=== PATIENT | female | born 1995 | race Asian ===

== ENCOUNTER 2020-01-20 08:00 | Outpatient (CLI) | payer OTHER | END 2020-01-20 23:59 | disposition home or self-care (01) | LOC: LAB.R 08:00 | PROVIDERS: ATTEND Obstetrics & Gynecology | DX: O34.80 Maternal care for other abnormalities of pelvic organs, unspecified trimester (principal); Z3A.00 Weeks of gestation of pregnancy not specified | CPT/HCPCS: 82731 ==

== ENCOUNTER 2020-01-27 08:00 | Outpatient (CLI) | payer OTHER | END 2020-01-27 08:01 | disposition home or self-care (01) | LOC: LAB.R 08:00 | PROVIDERS: ATTEND Obstetrics & Gynecology | DX: Z36.85 Encounter for antenatal screening for Streptococcus B (principal) | CPT/HCPCS: 81599; 87491; 87591; 87797 ==

== ENCOUNTER 2020-02-04 15:55 | Outpatient (CLI) | payer OTHER ==
[2020-02-04 21:39] LABS: CANDIDA GROUP DNA NEGATIVE (NEGATIVE); CANDIDA KRUSEI DNA NEGATIVE (NEGATIVE); TRICHOMONAS VAGINALIS DNA NEGATIVE (NEGATIVE)
== END 2020-02-04 23:59 | disposition home or self-care (01) ==
LOC: LAB.R 15:55
PROVIDERS: ATTEND Obstetrics & Gynecology
DX: N89.8 Other specified noninflammatory disorders of vagina (principal)
CPT/HCPCS: 87661; 87801

== ENCOUNTER 2020-02-23 07:27 | Inpatient (IN) | payer OTHER ==
--- NOTE | 2020-02-23 08:40 | HISTORY & PHYSICAL EXAMINATION ---
Admit History - Visit Reason Visit Reason: Other (IOL) - : 2 Parity: 1 Care: positive: Sebas Risk/History: positive: Other Complications This : positive: Other (Positive for Anti-M antibodies. Titers too low to count. Followed by MFM. Titers too low to count.) - Mother's Labs Mother's Blood Type: positive: A Mother's RH: positive: Positive GBS: positive: Group B Step Negative Rubella Status: positive: Immune (Patient is a 2) - Other Maternal History Other Maternal History: Patient is a 24 yo at 39w2d here for IOL. has been complicated by positive anti-M antibody. She has been followed by [facility] until about 34 wga and then transferred to [facility]. Has been followed by [facility]. Recent anti-M titers were undetectable. Had complication with epidural 21 months ago when giving in [place]. Had a high spinal that interfered with breathing and left her face numb. Wants to avoid epidural if possible. LMP 05/24/2019 gives SHERINE 02/28/2020 US on 08/04/2019 at 10w3d gives SHERINE 02/27/2020, cwd A pos/Rub imm RPR NR/ hepBsAg neg/Hep C neg/pap NILM/HIV NR/ GCCT negx2 Glucola 166 3H: 73/184/124/91 GBS neg FAS with left EIF, posterior placenta, 3VC NIPT 46 XY with normal QUAD Meds/Allgy - Allergies Allergies/Adverse Reactions: Allergies Allergy/AdvReac Type Severity Reaction Status Date / Time No Known Drug Allergies Allergy Verified 02/23/20 09:39 Review of Systems - Other Findings Other Findings: As per HPI, otherwise remaining systems are negative. Physical - Abdominal Exam Vital Signs: 97.9 117 120/80 16 Contraction Frequency (min/apart): quiet Uterine Resting Tone: positive: Soft - Monitoring Heart Rate Baseline: 145 mod viky 15x15 accels no decels Strip Review: positive: Category I - Presentation Presentation: positive: Vertex - Vaginal Exam Dilation (in cm): FT Effacement (%): long Station: positive: -3 Cervical Position: positive: Posterior - Other Notes Labor Progress Note/Additional Text: Bedside us conirmed vertex. Plan for Labor - Plan For Labor Plan for Labor: 24 yo at 39+2 here for IOL IOL: Unfavorable cervix -Misoprostol 50 mcg BC Q4H for up to six doses -Mota balloon as indicated -Pitocin kristopher favorable -Consider AROM as indicated FWB: Followed by MFM for Anti-m ab and persistent EIF. -Undetectable titers -NIPT 46 XY Cat I tracing, GBS neg, vertex, well grown -CEFM PAIN: Has PTSD from high spinal at last delivery. -Want to avoid epidural -Anesthesia to high school guidance counselor patient on options given poor prior experience -Fentanyl 50 mcg to max of 200 mcg cumulative dosing and not after 7 cm In-patient care
[2020-02-23] MEDS ORDERED: LABETALOL 20 MG/4 ML SYRINGE IVP PRN (08:41)
[2020-02-23] MEDS ORDERED: TRANEXAMIC ACID 1,000 MG in SODIUM CHLORIDE 0.9% 100ML 100 ML IV PRN (08:41)
[2020-02-23] MEDS ORDERED: LIDOCAINE-MPF 1% 30 ML VIAL ID PRN (08:41)
[2020-02-23] MEDS ORDERED: METHYLERGONOVINE 0.2 MG/ML VIAL IM PRN (08:41)
[2020-02-23] MEDS ORDERED: fentaNYL 100 MCG/2 ML VIAL IVP PRN (08:41)
[2020-02-23] MEDS ORDERED: miSOPROStoL 200 MCG TABLET BC PRN (08:41)
[2020-02-23] MEDS ORDERED: OXYTOCIN/SODIUM CHLORIDE 500 ML IV PRN ×2 (08:41)
[2020-02-23] MEDS ORDERED: OXYTOCIN 10 UNIT/ML VIAL IM PRN (08:41)
[2020-02-23] MEDS ORDERED: TERBUTALINE 1 MG/ML VIAL SUBQ PRN (08:41)
[2020-02-23] MEDS ORDERED: SODIUM CHLORIDE FLUSH 0.9% 10 ML SYRINGE IVP PRN (08:41)
[2020-02-23] MEDS ORDERED: CARBOPROST TROMETHAMINE 250 MCG/ML AMP IM PRN (08:41)
[2020-02-23] MEDS ORDERED: ONDANSETRON 4 MG/2 ML VIAL IVP PRN ×2 (08:41→21:00)
[2020-02-23 08:56] LABS: BASOPHILS % (AUTO) 0.4 %; EOSINOPHILS # (AUTO) 0.1 10^3/uL (0.0-0.7); EOSINOPHILS % (AUTO) 0.8 %; HGB - HEMOGLOBIN 10.8 g/dL (12.0-16.0); LYMPHOCYTES # (AUTO) 1.5 10^3/uL (1.5-3.5); LYMPHOCYTES % (AUTO) 19.3 %; MEAN CORPUSCULAR HEMOGLOBIN 29.8 pg (27.0-31.0); MEAN CORPUSCULAR VOLUME 90.1 fL (81.0-99.0); MEAN PLATELET VOLUME 10.6 fL (7.9-10.8); MONOCYTES # (AUTO) 0.6 10^3/uL (0.0-1.0); MONOCYTES % (AUTO) 7.1 %; NEUTROPHILS # (AUTO) 5.5 10^3/uL (1.5-6.6); NEUTROPHILS % (AUTO) 71.9 %; PLT - PLATELET COUNT 223 10^3/uL (130-450); RED BLOOD COUNT 3.63 10^6/uL (4.20-5.40); RED CELL DISTRIBUTION WIDTH 13.3 % (12.0-15.0); WHITE BLOOD COUNT 7.7 x10^3/uL (4.8-10.8)
[2020-02-23] MEDS ORDERED: OXYTOCIN/SODIUM CHLORIDE 500 ML IV SCH (09:00)
[2020-02-23] MEDS ORDERED: SODIUM CHLORIDE FLUSH 0.9% 10 ML SYRINGE IVP SCH (09:00)
[2020-02-23] MEDS: miSOPROStoL 100 MCG TABLET BC SCH ×2 (09:05→14:34)
[2020-02-23] MEDS ORDERED: miSOPROStoL 200 MCG TABLET PR ONE (09:30)
--- NOTE | 2020-02-23 18:34 | CONSULTATION NOTE ---
Consultation Report: Consultation to discuss previous negative experience with epidural. Pt described what sounds like a high epidural dose resulting in difficulty breathing, chest pain, and numbness at neck at L UE. Further complicating the situation was a communication barrier at the [facility]. Pt states that she felt all of her childbirth and it was described as tolerable but continues to have bad dreams and anxiety about the event. Complaints of residual back pain as well. Pt wishes to avoid epidural placement during this childbirth. I exp lained alternative options such as IV fentanyl and N2O. Discussed the possibility of her requesting an epidural during labor and the unlikelihood, though still possible, of those events repeating themselves with an epidural placement. Pt appeared comfortable at this time. Pt had no further questions at this point.
[2020-02-23] MEDS: LACTATED RINGERS 1,000 ML IV SCH ×2 (18:52→21:25)
--- NOTE | 2020-02-23 19:40 | PROVIDER PROGRESS NOTE ---
Subjective - Prog Note Date Prog Note Date: 02/23/20 Prog Note Time: 18:45 - Subjective Subjective: Feel uncomfortable and having pressure with ctx. Has had miso x2 Prune juice resulted in BM but additional stooling uncomfortable has been Cat I tracing but baseline now 160-170s. moderate with accels and no decels TOCO: Q1-2 min SVE 3/80/-2/posterior Giving 500 cc fluid bolus Holding additional cervical ripening augmentation Anesthesia s/p consult Anticipate Objective - Vital Signs/Intake & Output Intake & Output: Intake & Output 02/20/20 02/21/20 02/22/20 02/23/20 23:59 23:59 23:59 23:59 Intake Total 1800 Output Total 150 Balance 1650 - Lab Results Fish Bones: 02/23/20 08:45 Other Labs: Lab Results x24hrs 02/23/20 02/23/20 Range/Units 08:45 08:41 WBC 7.7 (4.8-10.8) x10^3/uL RBC 3.63 L (4.20-5.40) 10^6/uL Hgb 10.8 L (12.0-16.0) g/dL Hct 32.7 L (37.0-47.0) % MCV 90.1 (81.0-99.0) fL MCH 29.8 (27.0-31.0) pg MCHC 33.0 (32.0-36.0) g/dL RDW 13.3 (12.0-15.0) % Plt Count 223 (130-450) 10^3/uL MPV 10.6 (7.9-10.8) fL Neut # (Auto) 5.5 (1.5-6.6) 10^3/uL Lymph # (Auto) 1.5 (1.5-3.5) 10^3/uL [place] # (Auto) 0.6 (0.0-1.0) 10^3/uL Eos # (Auto) 0.1 (0.0-0.7) 10^3/uL Baso # (Auto) 0.0 (0.0-0.1) 10^3/uL Absolute Nucleated RBC 0.00 x10^3/uL Nucleated RBC % 0.0 /100WBC Blood Type A POSITIVE Antibody Screen NEGATIVE
--- NOTE | 2020-02-23 19:41 | PROVIDER PROGRESS NOTE ---
Subjective - Prog Note Date Prog Note Date: 02/23/20 Prog Note Time: 19:40 - Subjective Subjective: baseline back to 150s, mod viky, + accels no decels TOCO: Q1-2 Holding augmentation Expt management Epidural as desired Anticipate Objective - Vital Signs/Intake & Output Intake & Output: Intake & Output 02/20/20 02/21/20 02/22/20 02/23/20 23:59 23:59 23:59 23:59 Intake Total 1800 Output Total 150 Balance 1650 - Lab Results Fish Bones: 02/23/20 08:45 Other Labs: Lab Results x24hrs 02/23/20 02/23/20 Range/Units 08:45 08:41 WBC 7.7 (4.8-10.8) x10^3/uL RBC 3.63 L (4.20-5.40) 10^6/uL Hgb 10.8 L (12.0-16.0) g/dL Hct 32.7 L (37.0-47.0) % MCV 90.1 (81.0-99.0) fL MCH 29.8 (27.0-31.0) pg MCHC 33.0 (32.0-36.0) g/dL RDW 13.3 (12.0-15.0) % Plt Count 223 (130-450) 10^3/uL MPV 10.6 (7.9-10.8) fL Neut # (Auto) 5.5 (1.5-6.6) 10^3/uL Lymph # (Auto) 1.5 (1.5-3.5) 10^3/uL [place] # (Auto) 0.6 (0.0-1.0) 10^3/uL Eos # (Auto) 0.1 (0.0-0.7) 10^3/uL Baso # (Auto) 0.0 (0.0-0.1) 10^3/uL Absolute Nucleated RBC 0.00 x10^3/uL Nucleated RBC % 0.0 /100WBC Blood Type A POSITIVE Antibody Screen NEGATIVE
[2020-02-23] MEDS ORDERED: ROPIVACAINE 0.2% 200 MG/100 ML BAG EP ONE (20:25)
[2020-02-23] MEDS ORDERED: ROPIVACAINE 0.2% PF 20ML VIAL ONE (20:25)
[2020-02-23] MEDS ORDERED: ROPIVACAINE 0.2% 200 MG/100 ML BAG EP PRN (21:00)
[2020-02-23] MEDS ORDERED: METOCLOPRAMIDE 10 MG/2 ML VIAL IVP PRN (21:00)
[2020-02-23] MEDS ORDERED: NALBUPHINE 10 MG/ML AMP IVP PRN (21:00)
[2020-02-23] MEDS ORDERED: diphenhydrAMINE INJ 50 MG/ML VIAL IVP PRN (21:00)
[2020-02-23] MEDS ORDERED: NALOXONE 0.4 MG/ML VIAL IVP PRN (21:00)
--- NOTE | 2020-02-23 21:03 | ANESTHESIA ---
Pre-Anesthesia VS, & Labs - Diagnosis term labor, IUP - Procedure epidural Vital Signs: Temp Pulse Resp BP Pulse Ox 36.6 C 117 H 16 120/80 02/23/20 09:22 02/23/20 09:22 02/23/20 09:22 02/23/20 09:22 Height: 5 ft 4 in Weight (kg): 81.193 kg Body Mass Index: 30.7 BMI Classification: Obese - NPO Last Fluid Intake: t/o day Last Food Intake: full dinner - Is Patient ?: Yes - Lab Results Current Lab Results: Laboratory Tests 02/23/20 08:45: WBC 7.7, RBC 3.63 L, Hgb 10.8 L, Hct 32.7 L, MCV 90.1, MCH 29.8, MCHC 33.0, RDW 13.3, Plt Count 223, MPV 10.6, Neut # (Auto) 5.5, Lymph # (Auto) 1.5, [place] # (Auto) 0.6, Eos # (Auto) 0.1, Baso # (Auto) 0.0, Absolute Nucleated RBC 0.00, Nucleated RBC % 0.0 02/23/20 08:41: Blood Type A POSITIVE, Antibody Screen NEGATIVE Lab results reviewed: Yes Fish Bones: 02/23/20 08:45 Home Medications and Allergies Active Medications Carboprost Tromethamine (Hemabate) 250 mcg IM Q15M PRN PRN Reason: Step 4: Hemorrhage protocol Stop: 02/28/20 08:42 Fentanyl (Fentanyl) 50 mcg IVP Q1H PRN PRN Reason: PAIN Oxytocin/Sodium Chloride (Pitocin/Sodium Chloride) 500 mls @ 999 mls/hr IV PRN PRN; Protocol PRN Reason: POST- HEMORR PREVENTION Stop: 02/28/20 08:42 Tranexamic Acid 1,000 mg/ (Sodium Chloride) 110 mls @ 660 mls/hr IV .ONCE PRN PRN Reason: EBL >1200mL and within 3hr Stop: 02/28/20 08:42 Oxytocin/Sodium Chloride (Pitocin/Sodium Chloride) 500 mls @ 1 mls/hr IV TITR JOHN; Protocol Lactated Ringer's (Lr) 1,000 mls @ 100 mls/hr IV .Q10H JOHN Last Admin: 02/23/20 18:52 Dose: 500 mls/hr Documented by: Labetalol HCl (Trandate Syringe) 10 mg IVP Q20M PRN PRN Reason: SBP > 160 or DBP > 110 Lidocaine HCl (Xylocaine-Mpf 1% Vial) 30 ml ID .ONCE PRN PRN Reason: PERINEAL REPAIR Stop: 02/28/20 08:42 Methylergonovine Maleate (Methergine Inj) 0.2 mg IM .ONCE PRN PRN Reason: Step 2: Hemorrhage protocol Stop: 02/28/20 08:42 Misoprostol (Cytotec) 800 mcg BC .ONCE PRN PRN Reason: Step 3: Hemorrhage protocol Stop: 02/28/20 08:42 Misoprostol (Cytotec) 50 mcg BC Q4HR JOHN Last Admin: 02/23/20 14:34 Dose: 50 mcg Documented by: Ondansetron HCl (Zofran Inj) 4 mg IVP Q4HR PRN PRN Reason: Nausea / Vomiting Oxytocin (Pitocin) 10 unit IM .ONCE PRN PRN Reason: Step one: If no IV access Stop: 02/28/20 08:42 Sodium Chloride (Normal Saline Flush 0.9%) 10 ml IVP 0100,0900,1700 JOHN Sodium Chloride (Normal Saline Flush 0.9%) 10 ml IVP PRN PRN PRN Reason: NEEDED PER PROVIDER ORDERS Terbutaline Sulfate (Terbutaline) 0.25 mg SUBQ Q1H PRN PRN Reason: tachysystole Allergies/Adverse Reactions: Allergies Allergy/AdvReac Type Severity Reaction Status Date / Time No Known Drug Allergies Allergy Verified 02/23/20 09:39 Anes History & Medical History - Anesthetic History Anesthesia Complications: reports: No previous complications Family history of Anesthesia Complications: Denies Family history of Malignant Hyperthermia: Denies - Medical History Cardiovascular: reports: None Pulmonary: reports: None Smoking Status: Never smoker - Surgical History Other Past Surgical History: Hx of truamatic epidural placement/experience with first childbirth. Suspected high epidural. - Obstetrical History : 2 Parity: 1 Events: positive: Other Complications: positive: Other (Positive for Anti-M antibodies. Titers too low to count. Followed by MFM. Titers too low to count.) Exam General: Alert, Oriented x3, Cooperative Dental: WNL Mouth Openin Fingerbreadth Neck Mobility: Normal Mallampati classification: II Thyromental Distance: greater than 6 cm Respiratory: No respiratory distress Cardiovascular: Regular rate Mental/Cognitive Status: Alert/Oriented X3, Normal for patient Cognitive Status: Within normal limits Plan Anesthesia Type: Epidural Consent for Procedure(s) Verified and Reviewed: Yes Code Status: Attempt Resuscitation ASA classification: 2-Mild systemic disease Is this case an emergency?: No
--- NOTE | 2020-02-23 21:26 | PROVIDER PROGRESS NOTE ---
Subjective - Prog Note Date Prog Note Date: 02/23/20 Prog Note Time: 21:23 - Subjective Subjective: Called to patient bedside because she was 9 cm with BBOW. Patient is comfortable with epidural but reports pressures. Spontaneous labor after miso x2 EFM 145 mod viky 15x15 accels no decels TOCO: Q1-2 min AROM with clear fluid SVE 9/C/-1 Anticipate Objective - Vital Signs/Intake & Output Intake & Output: Intake & Output 02/20/20 02/21/20 02/22/20 02/23/20 23:59 23:59 23:59 23:59 Intake Total 1800 Output Total 150 Balance 1650 - Lab Results Fish Bones: 02/23/20 08:45 Other Labs: Lab Results x24hrs 02/23/20 02/23/20 Range/Units 08:45 08:41 WBC 7.7 (4.8-10.8) x10^3/uL RBC 3.63 L (4.20-5.40) 10^6/uL Hgb 10.8 L (12.0-16.0) g/dL Hct 32.7 L (37.0-47.0) % MCV 90.1 (81.0-99.0) fL MCH 29.8 (27.0-31.0) pg MCHC 33.0 (32.0-36.0) g/dL RDW 13.3 (12.0-15.0) % Plt Count 223 (130-450) 10^3/uL MPV 10.6 (7.9-10.8) fL Neut # (Auto) 5.5 (1.5-6.6) 10^3/uL Lymph # (Auto) 1.5 (1.5-3.5) 10^3/uL [place] # (Auto) 0.6 (0.0-1.0) 10^3/uL Eos # (Auto) 0.1 (0.0-0.7) 10^3/uL Baso # (Auto) 0.0 (0.0-0.1) 10^3/uL Absolute Nucleated RBC 0.00 x10^3/uL Nucleated RBC % 0.0 /100WBC Blood Type A POSITIVE Antibody Screen NEGATIVE
[2020-02-23] MEDS ORDERED: SIMETHICONE CHEW 80 MG TABLET PO PRN (23:09)
[2020-02-23] MEDS ORDERED: HYDROCORTISONE 1% CREAM 28 GM TUBE PR PRN (23:09)
[2020-02-23] MEDS ORDERED: ONDANSETRON ODT 4 MG TABLET TL PRN (23:09)
--- NOTE | 2020-02-23 23:20 | DELIVERY NOTE ---
Delivery Note - Infant Delivery Method Infant Delivery Method: positive: Spontaneous vaginal delivery - Cervical Ripening Method Cervical Ripening Method: positive: Misoprostil - Presentation Presentation: positive: Vertex, EVON - left occiput anterior - Nuchal Cord Nuchal Cord: positive: None - Anesthetic Anesthetic Type: - Amniotic Fluid Description Amniotic Fluid Description: positive: Clear - Episiotomy Type Episiotomy Type: positive: None - Laceration Laceration: positive: 1st degree - Delivery Outcome Delivery Outcome: positive: Livebirth - Buchanan Buchanan: positive: Placed in direct skin contact with mother, Stimulated, Warmed, Pharr used sex: positive: Male - Cord Cord: positive: 3 vessels - Placenta Placenta: positive: Intact, Expressed - Estimated Blood Loss Estimated Blood Loss (in cc): 200 - Post Delivery Events Post Delivery Events: positive: No post delivery events - Delivery Comments (Free Text/Narrative) Delivery Comments (Free Text/Narrative): STAGE I: Patient is a 24 yo at 39+6 wga with complicated by Anti- M ab and persistent EIF was admitted for induction of labor. Initial SVE was FT/long/high. She was given two doses of misoprostol 50 mcg BC which prompted commencement of spontaneous contractions. No further augmentation was indicated. She had an epidural for pain management. GBS negative, antibiotics were not indicated. Patient underwent artificial rupture of membranes at 21:19, notable for passage of clear fluid. Other than brief period of tachycardia relieved with a fluid bolus, EFM was category I throughout Stage I labor. At 21:30, a stretchy anterior lip was reduced and patient commenced with pushing. STAGE II: Patient pushed with coaching for 1 hour and 12 minutes, delivering a viable male from vertex presentation at 22:42. There was a 70 second shoulder dystocia relieved with Reema and rotational maneuvers. was delivered to maternal chest. Cord was clamped x2 and cut after pulsations had ceased. Apgars were 7/9. Weight is pending. STAGE III: Placenta delivered at 22:48 with manual expression. It was examined and found to be intact. The perineum was examined and was found to have a small midline first degree laceration that was hemostatic and repair was not indicated. Total EBL was 200 cc.
[2020-02-23] MEDS ORDERED: LACTATED RINGERS 1,000 ML IV SCH (23:45)
[2020-02-24] MEDS: IBUPROFEN 600 MG TABLET PO SCH ×4 (00:25→22:57)
[2020-02-24] MEDS: ACETAMINOPHEN 500 MG TABLET PO SCH ×3 (00:30→20:27)
--- NOTE | 2020-02-24 16:27 | PROVIDER PROGRESS NOTE ---
Subjective - Prog Note Date Prog Note Date: 02/24/20 Prog Note Time: 12:45 - Subjective Subjective: Patient is up and ambulating and tolerating po. She had johnny straight cath'd overnight fore more than 1100 cc of urine. She has been trying to void at [facility] and has only passed a small amount of urine. Reports that she had to be straight cath's three times after her prior delivery. Bf is going well and pain is well managed. Objective - Vital Signs/Intake & Output Reviewed Vital Signs: Yes Vital Signs: Vital Signs x48h Temp Pulse Resp BP Pulse Ox 02/24/20 10:56 97.9 F 68 16 109/59 L 99 Intake & Output: Intake & Output 02/21/20 02/22/20 02/23/20 02/24/20 23:59 23:59 23:59 23:59 Intake Total 2800 500 Output Total 550 4600 Balance 2250 -4100 - Objective General Appearance: positive: No acute distress Respiratory: positive: No respiratory distress, Breath sounds nml Cardiovascular: positive: Regular rate & rhythm Abdomen: positive: Non-tender, Other (FF below umbi. Discomfort with bladder palpation after void) Skin: positive: Color nml Extremities: positive: Non-tender, No pedal edema Neurologic/Psychiatric: positive: Oriented x3 - Lab Results Fish Bones: 02/23/20 08:45 Assessment/Plan - Problem List (1) Vaginal delivery Impression: Patient with on-going urinary retention. Will need in and out catheterization at present. Will remain in patient until bladder function returns Will in and out catheterize as needed Anticipate DC home in the am
[2020-02-24] MEDS: DOCUSATE SODIUM 100 MG CAPSULE PO PRN (16:54)
[2020-02-25] MEDS: ACETAMINOPHEN 500 MG TABLET PO SCH (04:20)
[2020-02-25] MEDS: IBUPROFEN 600 MG TABLET PO SCH (05:22)
[2020-02-25 08:02] VITALS: BP 113/70
--- NOTE | 2020-02-25 09:24 | Discharge Plan ---
Discharge Plan Problem Reviewed?: Yes Disposition: Home, Self Care Condition: Good Prescriptions: Docusate Sodium 100 - 200 mg PO BID PRN #60 capsule PRN Reason: Constipation Ibuprofen [Motrin] 600 mg PO Q6H PRN #90 tab PRN Reason: Pain Acetaminophen [Tylenol Extra Strength] 500 - 1,000 mg PO Q8H PRN #90 tablet PRN Reason: Pain Diet: Regular Activity Restrictions: Additional Comments (Nothing in the vagina for 6 weeks: No intercourse, tampons, douching Call for: -Fever greater than 100.5 - Pain that does not improve with pain medication -Heavy bleeding in which you are soaking a pad an hour for 2 hours in a row) Shower Restrictions: No (No tub baths or hot tubs for 4 weeks) Driving Restrictions: No No Smoking: If you smoke, Please STOP! Call for help. Follow-up with: Dayana Olvera MD [Provider Admit Priv/Credential] -
--- NOTE | 2020-02-25 09:28 | DISCHARGE SUMMARY ---
Discharge Summary Admit Date: 02/23/20 Discharge Date: 02/25/20 Discharging Provider: May Condition at Discharge: Good Discharge Disposition: 01 Home, Self Care - DIAGNOSES Admission Diagnoses: IUP at 39+6 wga Anti-M antibody Discharge Diagnoses with Status of Each Condition: Same and delivery of term - HPI History of Present Illness: Patient is a 24 yo admitted at 39w2d here for IOL. has been complicated by positive anti-M antibody. She has been followed by [facility] until about 34 wga and then transferred to [facility]. Has been followed by [facility]. Recent anti-M titers were undetectable. Had complication with epidural 21 months ago when giving in [place]. Had a high spinal that interfered with breathing and left her face numb. LMP 05/24/2019 gives SHERINE 02/28/2020 US on 08/04/2019 at 10w3d gives SHERINE 02/27/2020, cwd A pos/Rub imm RPR NR/ hepBsAg neg/Hep C neg/pap NILM/HIV NR/ GCCT negx2 Glucola 166 3H: 73/184/124/91 GBS neg FAS with left EIF, posterior placenta, 3VC NIPT 46 XY with normal QUAD - HOSPITAL COURSE Hospital Course: STAGE I: Patient is a 24 yo at 39+6 wga with complicated by Anti- M ab and persistent EIF was admitted for induction of labor. Initial SVE was FT/long/high. She was given two doses of misoprostol 50 mcg BC which prompted commencement of spontaneous contractions. No further augmentation was indicated. She had an epidural for pain management. GBS negative, antibiotics were not indicated. Patient underwent artificial rupture of membranes at 21:19, notable for passage of clear fluid. Other than brief period of tachycardia relieved with a fluid bolus, EFM was category I throughout Stage I labor. At 21:30, a stretchy anterior lip was reduced and patient commenced with pushing. STAGE II: Patient pushed with coaching for 1 hour and 12 minutes, delivering a viable male from vertex presentation at 22:42. There was a 70 second shoulder dystocia relieved with Reema and rotational maneuvers. was delivered to maternal chest. Cord was clamped x2 and cut after pulsations had ceased. Apgars were 7/9. Weight is pending. STAGE III: Placenta delivered at 22:48 with manual expression. It was examined and found to be intact. The perineum was examined and was found to have a small midline first degree laceration that was hemostatic and repair was not indicated. Total EBL was 200 cc. course was complicated by urinary retention requiring replacement of a urinary catheter. She notes that this occurred after her first as well and she needed to undergo in and out catheterization during the period. It was removed on PPD#2 and patient was able to void. She was discharged to home with routine discharge instructions. Rh positive and rubella immune. - ALLERGIES Allergies/Adverse Reactions: Allergies Allergy/AdvReac Type Severity Reaction Status Date / Time No Known Drug Allergies Allergy Verified 02/23/20 09:39 - MEDICATIONS Home Medications: Ambulatory Orders Medication Instructions Recorded Confirmed Acetaminophen [Tylenol Extra 500 - 1,000 mg PO Q8H PRN #90 02/25/20 Strength] tablet Docusate Sodium 100 - 200 mg PO BID PRN #60 capsule 02/25/20 Ibuprofen [Motrin] 600 mg PO Q6H PRN #90 tab 02/25/20 - LABS Result Diagrams: 02/23/20 08:45 - FOLLOW UP Follow Up: 1 week - TIME SPENT Time Spent in Discharge (Minutes): 30
--- NOTE | 2020-02-25 09:43 | PROVIDER PROGRESS NOTE ---
Subjective - Prog Note Date Prog Note Date: 02/25/20 Prog Note Time: 09:41 - Subjective Subjective: Patient is up and ambulating, tolerating po, and voiding. Pain is well managed with pain medications. Mota removed at 4 am and patient was able to void x2 since that time. BF going well. Wants DMPA for contraception at 6 weeks pp. Objective - Vital Signs/Intake & Output Reviewed Vital Signs: Yes Vital Signs: Vital Signs x48h Temp Pulse Resp BP Pulse Ox 02/25/20 08:02 98.2 F 62 18 113/70 100 02/25/20 04:00 98.2 F 63 18 112/66 100 Intake & Output: Intake & Output 02/22/20 02/23/20 02/24/20 02/25/20 23:59 23:59 23:59 23:59 Intake Total 2800 850 1000 Output Total 550 5250 2200 Balance 2250 -4400 -1200 - Objective General Appearance: positive: No acute distress Respiratory: positive: No respiratory distress Cardiovascular: positive: Regular rate & rhythm Abdomen: positive: Non-tender, Other (FF below umbi) Skin: positive: Color nml Extremities: positive: Non-tender Neurologic/Psychiatric: positive: Oriented x3 - Lab Results Fish Bones: 02/23/20 08:45 Assessment/Plan - Problem List (1) Vaginal delivery Impression: PPD#2: Meeting goals for discharge -Routine discharge instructions given -Desires DMPAt 6 weeks pp -Discharged to home
[2020-02-25] MEDS: DOCUSATE SODIUM 100 MG CAPSULE PO PRN (10:31)
--- NOTE | 2020-02-25 12:45 | Labor Flowsheet ---
Labor Flowsheet Datetime Report Generated by CPN: 02/25/2020 12:44 Datetime: 02/25/2020 07:44 VITAL SIGNS NBP Sys/Laney/Mean (mmHg): 113 : 70 : 81 Pulse: 61 Datetime: 02/25/2020 00:05 SpO2 (%): 100 Datetime: 02/24/2020 01:30 PAIN Pain Scale: 0 Datetime: 02/24/2020 00:00 Pain Presence: Intermittent Pain Type: Ache Pain Location: Perineum Pain Goal: 1 Datetime: 02/23/2020 23:35 Membranes Ruptured Date/Time: 02/23/2020 21:19 Datetime: 02/23/2020 22:58 Patient Care Comments: Strait cath by OB for 200ml Datetime: 02/23/2020 22:50 Stage of : Recovery Datetime: 02/23/2020 22:45 LaborFlag: Labor Datetime: 02/23/2020 22:44 Actions for Decelerations: Other Comments: nasal canula removed-02 off Datetime: 02/23/2020 22:42 UTERINE ACTIVITY Monitor Mode: External Monitor Interventions for UA: [place] Adjusted Quality: Strong Resting Tone (Palpate): Relaxed Contraction Comments: Pattern unchanged ASSESSMENT A Monitor Mode: External US Variability: Moderate 6-25 bpm Category: Category II Datetime: 02/23/2020 22:14 Pattern: Normal: <= 5 Contractions in 10 Minutes Decelerations: Variable Datetime: 02/23/2020 22:00 FHR Baseline Changes: No Baseline Change Datetime: 02/23/2020 21:30 Frequency (min): 1.5-3 Duration (sec): 50-100 Monitor Interventions for FHR: Ultrasound Adjusted Accelerations: 15X15 MATERNAL ASSESSMENT Level of Consciousness: Alert Nausea/Vomiting: Denies Comfort Measures: Breathing/Relaxation; Coaching STAGE 2 Pushing: Coached on Pushing; Urge to Push Pushing Position: Pushing with Contractions Pushing Progress: Descent with Pushing Datetime: 02/23/2020 21:29 Effacement (%): 100 Station: 0 Datetime: 02/23/2020 21:28 Provider Reviewed Strip: Yes COMMUNICATION Communication: Provider at Bedside Communication Comments: May in room for pushing Datetime: 02/23/2020 21:19 VAGINAL EXAM Dilatation (cm): 9.5 Exam by: McSorley Membrane Status: Ruptured Membranes Rupture Method: Artificial Amniotic Fluid Color: Clear Amniotic Fluid Amount: Moderate Amniotic Fluid Odor: Normal Vaginal Exam Comments: :ip Datetime: 02/23/2020 21:18 Pain Assessment Comments: Pts pulse higher than NL-PCP aware Datetime: 02/23/2020 21:06 Temperature (C): 37.8 Maternal Comments: Pt feeling shakey Datetime: 02/23/2020 21:02 Strip Reviewed by: Kelly Moreno RN Notification Reason: Status Update Datetime: 02/23/2020 20:48 Epidural Procedure Other: Pump Started Datetime: 02/23/2020 20:39 Epidural Procedure: Loading Dose Datetime: 02/23/2020 20:29 FHR Baseline Rate : 150 Datetime: 02/23/2020 20:21 PROCEDURE TIME OUT Procedure Verify: Correct Patient Identity; Correct Side and Site are Marked; Accurate Procedure Co nsent Form; Agreement on Procedure to be Done; Correct Patient Position; Relevant Images and Results are Properly Labeled and Displayed; Addressed Need to Administer Antibiotics or Fluids for Irrigation ; Safety Precautions Based on Patient History or Medication Use Epidural Positioning: Sitting Datetime: 02/23/2020 20:20 Oxygen Method: Room Air Datetime: 02/23/2020 20:19 Pain Coping: Breathing Through Contractions; Requesting Pain Medication or Epidural Anesthesia Comments: Pt sitting for epidural-very uncomfortable rating cntxs 10/10 Datetime: 02/23/2020 19:56 ANESTHESIA Anesthesia Plans: Epidural Datetime: 02/23/2020 19:42 Pain Relief Measures: Comfort Measures Datetime: 02/23/2020 19:31 Respirations: 20 Datetime: 02/23/2020 18:58 I/O Interventions: Up to BR Datetime: 02/23/2020 18:55 Patient Position/Activity: Standing Datetime: 02/23/2020 18:37 PATIENT CARE IV/Blood Work: IV Bolus Started Datetime: 02/23/2020 14:36 MEDICATIONS Cervical Ripening Agents: Cervidil Datetime: 02/23/2020 13:11 Temperature Route: Oral Datetime: 02/23/2020 11:40 Vaginal Bleeding: None Cervix, Consistency: Soft Cervix, Position: Posterior
== END 2020-02-25 11:40 | disposition home or self-care (01) | DRG 807 ==
LOC: WFO 07:27 → FBP 07:39 → WFO 08:40 → FBP 08:41
PROVIDERS: ADMIT Obstetrics & Gynecology; ATTEND Obstetrics & Gynecology
PROC: 3E0P7VZ Introduction of Hormone into Female Reproductive, Via Natural or Artificial Opening (ICD-10-PCS; principal; 2020-02-23)
PROC: 10E0XZZ Delivery of Products of Conception, External Approach (ICD-10-PCS; 2020-02-23)
PROC: 10907ZC Drainage of Amniotic Fluid, Therapeutic from Products of Conception, Via Natural or Artificial Opening (ICD-10-PCS; 2020-02-23)
DX: O70.0 First degree perineal laceration during delivery (principal); Z37.0 Single live birth; O66.0 Obstructed labor due to shoulder dystocia; Z3A.39 39 weeks gestation of pregnancy; O90.89 Other complications of the puerperium, not elsewhere classified; R33.9 Retention of urine, unspecified; O36.1930 Maternal care for other isoimmunization, third trimester, not applicable or unspecified; O76 Abnormality in fetal heart rate and rhythm complicating labor and delivery
CPT/HCPCS: 85025; 86850; 86900; 86901; A9270; J2795; J7120

== ENCOUNTER 2020-03-16 15:55 | Outpatient (CLI) | payer OTHER | END 2020-03-16 16:10 | disposition home or self-care (01) | LOC: WFO 15:55 → FBP 15:57 → WFO 16:10 | PROVIDERS: ATTEND Obstetrics & Gynecology | DX: O92.79 Other disorders of lactation (principal) | CPT/HCPCS: 99403 ==

== ENCOUNTER 2020-04-27 10:18 | Outpatient (CLI) | payer OTHER ==
--- NOTE | 2020-04-27 14:49 | Ultrasound Report ---
PROCEDURE: Pelvic w/Transvaginal INDICATIONS: RT SIDE OVARIAN CYST TECHNIQUE: Real-time scanning was performed of the pelvic organs, with image documentation. Additional endovagi nal scanning was necessary due to incomplete visualization of the adnexal and endometrial structures by transabdominal scanning. COMPARISON: None. FINDINGS: Transabdominal scanning: Limited scanning through the kidneys shows no hydronephrosis. No pathologi c free abdominal or pelvic fluid. Endovaginal scanning: Uterus: Uterus is normal in size at 3.1 x 6.0 x 7.4 cm. The endometrium measures 13 mm in combined thickness. Ovaries: In the left ovary there is an approximately 3.3 x 3.6 x 3.8 cm, which is mostly internally a nechoic although there are a few low level internal echoes. A 1 cm simple cyst is noted in the right ovary. Otherwise normal appearance of both ovaries. IMPRESSION: Approximately 3.8 cm left ovarian cyst, mostly anechoic but with some low-level internal echoes. This is most likely a resolving hemorrhagic cyst. Reviewed by: Hamzah Little MD on 04/27/2020 1:48 PM [facility] Approved by: Hamzah Little MD on 04/27/2020 1:48 PM [facility] Station ID: [id number]
== END 2020-04-27 10:19 | disposition home or self-care (01) ==
LOC: DI 10:18
PROVIDERS: ATTEND Obstetrics & Gynecology
DX: N83.291 Other ovarian cyst, right side (principal); N83.202 Unspecified ovarian cyst, left side

== ENCOUNTER 2020-11-27 11:30 | Outpatient (CLI) | payer OTHER | END 2020-11-27 23:59 | disposition home or self-care (01) | LOC: LAB.N 11:30 | PROVIDERS: ATTEND Physician Assistant Medical | DX: R07.0 Pain in throat (principal) | CPT/HCPCS: 87275; 87276 ==

== ENCOUNTER 2021-01-17 08:00 | Outpatient (CLI) | payer OTHER ==
[2021-01-18 12:37] LABS: MUDS CUTOFF CONCENTRATIONS CUTOFF CONC BELOW:
[2021-01-18 12:41] LABS: BILIRUBIN,URINE NEGATIVE (NEGATIVE); GLUCOSE, URINE (UA) NEGATIVE (NEGATIVE); KETONES,URINE (UA) NEGATIVE (NEGATIVE); LEUKOCYTE ESTERASE, URINE NEGATIVE (NEGATIVE); NITRITE,URINE NEGATIVE (NEGATIVE); OCCULT BLOOD,URINE TRACE-INTA (NEGATIVE); PROTEIN,URINE NEGATIVE (NEGATIVE); UROBILINOGEN,URINE 0.2 (NORMAL) E.U./dL (NORMAL)
[2021-01-18 12:53] LABS: AMPHETAMINE SCREEN,URINE NEGATIVE (NEGATIVE); BACTERIA,URINE Rare /HPF (None Seen); BARBITURATE SCREEN,UR NEGATIVE (NEGATIVE); BENZODIAZEPINES SCREEN, URINE NEGATIVE (NEGATIVE); CLARITY,URINE CLEAR (CLEAR); COCAINE SCREEN URINE NEGATIVE (NEGATIVE); METHADONE SCREEN, URINE NEGATIVE (NEGATIVE); METHAMPHETAMINES SCREEN, URINE NEGATIVE (NEGATIVE); OPIATE SCREEN, URINE NEGATIVE (NEGATIVE); OXYCODONE SCREEN, URINE NEGATIVE (NEGATIVE); PROPOXYPHENE SCREEN, URINE NEGATIVE (NEGATIVE); RBC,URINE 0-5 /HPF (0-5); SQUAMOUS EPITHELIAL CELL,UR RARE Squamous (<= Few); THC CANNABINOID SCREEN, URINE NEGATIVE (NEGATIVE); TRICYCLIC ANTIDEPRESSANT,URINE NEGATIVE (NEGATIVE); WBC,URINE 0-3 /HPF (0-5)
== END 2021-01-17 23:59 | disposition home or self-care (01) ==
LOC: LAB 08:00
PROVIDERS: ATTEND Obstetrics & Gynecology
DX: Z34.80 Encounter for supervision of other normal pregnancy, unspecified trimester (principal)
CPT/HCPCS: 80306; 81001; 87086

== ENCOUNTER 2021-01-30 14:49 | Outpatient (CLI) | payer OTHER ==
--- NOTE | 2021-01-30 16:28 | Ultrasound Report ---
PROCEDURE: OB First Trimester INDICATIONS: SUPERV OF NL PREG OUTSIDE/PRIOR DATING DATA: Last menstrual period (LMP): Unknown. LMP-based estimated date of delivery (SHERINE): Not applicable. First dating scan (date and location): 01/30/2021. Estimated date of delivery (SHERINE) from first dating scan: 08/19/2021. The below data below was generated using the ultrasound generated SHERINE of 08/19/2021 TECHNIQUE: Real-time scanning was performed of the fetus and maternal pelvic organs, with image documentation. COMPARISON: None. FINDINGS: Embryo: At the uterine fundus there is a gestational sac measuring 4.8 cm, corresponding to gestatio nal age of 10 weeks 3 days. Within the gestational sac there is a conceptus measuring 4.4 cm, corresp onding to gestational age of 11 weeks 2 days. Heart rate: 164 Measurement variability in dating: +/- 4 weeks by LMP, +/- 7 days by mean sac diameter (use before 6 weeks gestation if crown-rump length not able to be measured), +/- 5 days by crown-rump length (6-12 weeks gestation). Maternal organs: Ovaries are within normal limits. IMPRESSION: Single live intrauterine gestation with average ultrasound age of 11 weeks 2 days. Reviewed by: Hamzah Little MD on 01/30/2021 4:27 PM PDT Approved by: Hamzah Little MD on 01/30/2021 4:27 PM PDT Station ID: [id number]
== END 2021-01-30 14:50 | disposition home or self-care (01) ==
LOC: DI 14:49
PROVIDERS: ATTEND Obstetrics & Gynecology
DX: Z34.91 Encounter for supervision of normal pregnancy, unspecified, first trimester (principal); Z3A.11 11 weeks gestation of pregnancy

== ENCOUNTER 2021-02-01 08:42 | Outpatient (CLI) | payer OTHER ==
[2021-02-01 12:15] LABS: BASOPHILS % (AUTO) 0.3 %; EOSINOPHILS # (AUTO) 0.1 10^3/uL (0.0-0.7); EOSINOPHILS % (AUTO) 0.8 %; HCT - HEMATOCRIT 36.3 % (37.0-47.0); HGB - HEMOGLOBIN 11.9 g/dL (12.0-16.0); LYMPHOCYTES # (AUTO) 1.6 10^3/uL (1.5-3.5); LYMPHOCYTES % (AUTO) 20.9 %; MEAN CORPUSCULAR HEMOGLOBIN 29.5 pg (27.0-31.0); MEAN CORPUSCULAR HGB CONC 32.8 g/dL (32.0-36.0); MEAN CORPUSCULAR VOLUME 89.9 fL (81.0-99.0); MEAN PLATELET VOLUME 10.5 fL (7.9-10.8); MONOCYTES # (AUTO) 0.4 10^3/uL (0.0-1.0); MONOCYTES % (AUTO) 4.7 %; NEUTROPHILS # (AUTO) 5.5 10^3/uL (1.5-6.6); PLT - PLATELET COUNT 256 10^3/uL (130-450); RED BLOOD COUNT 4.04 10^6/uL (4.20-5.40); RED CELL DISTRIBUTION WIDTH 12.6 % (12.0-15.0); WHITE BLOOD COUNT 7.5 x10^3/uL (4.8-10.8)
[2021-02-02 12:38] LABS: HEPATITIS B SURFACE ANTIGEN NON-REACTIVE (NON-REACTIVE); HEPATITIS C ANTIBODY NON-REACTIVE (NON-REACTIVE)
[2021-02-02 14:40] LABS: HIV AG/AB 4TH GEN NON-REACTIVE (NON-REACTIVE)
== END 2021-02-01 08:43 | disposition home or self-care (01) ==
LOC: LAB.N 08:42
PROVIDERS: ATTEND Obstetrics & Gynecology
DX: Z34.80 Encounter for supervision of other normal pregnancy, unspecified trimester (principal); Z36.89 Encounter for other specified antenatal screening
CPT/HCPCS: 36415; 85025; 86592; 86762; 86787; 86803; 86850; 86900; 86901; 87340; 87389

== ENCOUNTER 2021-02-08 08:00 | Outpatient (CLI) | payer OTHER ==
[2021-02-08 23:29] LABS: CHLAMYDIA TRACHOMATIS DNA NEGATIVE (NEGATIVE); NEISSERIA GONORRHOEAE DNA NEGATIVE (NEGATIVE); TRICHOMONAS VAGINALIS DNA NEGATIVE (NEGATIVE)
== END 2021-02-08 23:59 | disposition home or self-care (01) ==
LOC: LAB.WC 08:00
PROVIDERS: ATTEND Obstetrics & Gynecology
DX: Z34.80 Encounter for supervision of other normal pregnancy, unspecified trimester (principal)
CPT/HCPCS: 87491; 87591; 87661

== ENCOUNTER 2021-03-02 09:59 | Outpatient (CLI) | payer OTHER ==
[2021-03-06 13:51] LABS: AFP MOM 1.07; AGE RISK DOWN SYNDROME 1 IN 882; CALC'D GESTATIONAL AGE 15.7 weeks; CIGARETTE SMOKER? NOT GIVEN; DONOR AGE: EGG RETRIEVAL NOT GIVEN; DONOR EGG NO; EDD DETERMINED BY ULTRASOUND; ESTRIOL MOM 0.87; HCG MOM 0.53; HX OF NEURAL TUBE DEFECTS NO; INHIBIN A MOM 0.56; INSULIN DEPEND DIABETIC NO; MATERNAL WEIGHT 166 lbs; MSS DOWN SYNDROME RISK <1 IN 5000; MSS3 TRISOMY 18 RISK <1 IN 5000; NUMBER OF FETUSES 1; PREV PREGNANCY DOWN SYND NO; RISK FOR ONTD <1 IN 5000
== END 2021-03-02 10:00 | disposition home or self-care (01) ==
LOC: LAB.N 09:59
PROVIDERS: ATTEND Obstetrics & Gynecology
DX: Z34.80 Encounter for supervision of other normal pregnancy, unspecified trimester (principal); R76.8 Other specified abnormal immunological findings in serum
CPT/HCPCS: 36415; 81220; 81511; 86850

== ENCOUNTER 2021-03-09 08:00 | Outpatient (CLI) | payer OTHER ==
[2021-03-09 16:30] LABS: BILIRUBIN,URINE NEGATIVE (NEGATIVE); GLUCOSE, URINE (UA) NEGATIVE (NEGATIVE); KETONES,URINE (UA) NEGATIVE (NEGATIVE); LEUKOCYTE ESTERASE, URINE LARGE (NEGATIVE); NITRITE,URINE NEGATIVE (NEGATIVE); OCCULT BLOOD,URINE TRACE-INTA (NEGATIVE); PH,URINE 6.5 PH (5.0-7.5); PROTEIN,URINE NEGATIVE (NEGATIVE); UROBILINOGEN,URINE 0.2 (NORMAL) E.U./dL (NORMAL)
[2021-03-09 16:37] LABS: CLARITY,URINE HAZY (CLEAR)
[2021-03-09 16:53] LABS: BACTERIA,URINE Moderate /HPF (None Seen); RBC,URINE 0-5 /HPF (0-5); SQUAMOUS EPITHELIAL CELL,UR MOD Squamous (<= Few); WBC,URINE 0-3 /HPF (0-5)
== END 2021-03-09 23:59 | disposition home or self-care (01) ==
LOC: LAB 08:00
PROVIDERS: ATTEND Obstetrics & Gynecology
DX: O99.891 Other specified diseases and conditions complicating pregnancy (principal); R10.9 Unspecified abdominal pain
CPT/HCPCS: 81001; 87086

== ENCOUNTER 2021-03-23 15:40 | Outpatient (CLI) | payer OTHER ==
[2021-03-23 17:54] LABS: BILIRUBIN,URINE NEGATIVE (NEGATIVE); GLUCOSE, URINE (UA) NEGATIVE (NEGATIVE); KETONES,URINE (UA) NEGATIVE (NEGATIVE); LEUKOCYTE ESTERASE, URINE NEGATIVE (NEGATIVE); NITRITE,URINE NEGATIVE (NEGATIVE); OCCULT BLOOD,URINE TRACE-INTA (NEGATIVE); PH,URINE 6.5 PH (5.0-7.5); PROTEIN,URINE NEGATIVE (NEGATIVE); UROBILINOGEN,URINE 0.2 (NORMAL) E.U./dL (NORMAL)
[2021-03-23 18:09] LABS: BACTERIA,URINE Few /HPF (None Seen); CLARITY,URINE CLEAR (CLEAR); RBC,URINE 0-5 /HPF (0-5); SQUAMOUS EPITHELIAL CELL,UR FEW Squamous (<= Few); WBC,URINE 0-3 /HPF (0-5)
== END 2021-03-23 15:41 | disposition home or self-care (01) ==
LOC: LAB.N 15:40
PROVIDERS: ATTEND Obstetrics & Gynecology
DX: O99.891 Other specified diseases and conditions complicating pregnancy (principal); R10.9 Unspecified abdominal pain; R76.8 Other specified abnormal immunological findings in serum
CPT/HCPCS: 81001; 86850; 87086

== ENCOUNTER 2021-03-28 16:11 | Outpatient (CLI) | payer OTHER ==
--- NOTE | 2021-03-29 16:32 | Ultrasound Report ---
PROCEDURE: OB Detailed Eval INDICATIONS: SUPERVISION OF NORMAL OUTSIDE/PRIOR DATING DATA: Last menstrual period (LMP): Unknown. LMP-based estimated date of delivery (SHERINE): Unknown. First dating scan (date and location): 01/30/2021. Estimated date of delivery (SHERINE) from first dating scan: 08/19/2021. The below data below was generated using the ultrasound SHERINE of 08/19/2021 TECHNIQUE: Real-time scanning was performed of the fetus, with image documentation and biometric measurements. COMPARISON: OB ultrasound 01/30/2021 FINDINGS: General: A single living intrauterine gestation is present. Presentation: Variable Placenta: Placental position is anterior, without previa. Amniotic fluid index: 11.7 cm, within normal limits for gestational age. Largest pocket 3.7 cm. heart rate: 148 beats per minute. Maternal cervical canal: 4.4 cm long; normal length is 2.5 cm or more. biometrics: Biparietal diameter: 4.4 cm 19 weeks 3 days Head circumference: 16.5 cm 19 weeks 2 days Abdominal circumference: 20.6 cm 19 weeks 0 days Femur length: 2.9 cm 20 weeks 0 days Estimated gestational age from initial scan: 19 weeks 3 days Composite gestational age from present scan: 19 weeks 7 days Estimated weight and percentile: 271g 25th percentile Measurement variability in biometric dating: +/- 10 days from 12-20 weeks gestation, +/- 2 weeks from 20-30 weeks gestation, +/- 3 weeks at 30 weeks gestation or later. Anatomic survey: Neuro: Ventricles are normal at less than 10 mm. Cisterna magna is normal at 3-11 mm. Cerebellum i s normal in size and morphology. Nuchal skin fold: Normal at less than 6 mm between 14 and 20 weeks gestational age. Face: Profile is not well visualized. Spine: No evidence for spina bifida. Heart: 4-chambered heart and ventricular outflow tracts are not well seen. Diaphragm: Diaphragm is intact. Stomach: Left-sided stomach is present. Kidneys: No hydronephrosis. Normal is less than 5 mm in 2nd trimester, less than 7 mm in 3rd trimester. Cord: 3 vessel cord has orthotopic insertion. Bladder: Normal in size. Extremities: All 4 extremities are visualized. Miscellaneous: Left corpus luteal cyst is again noted. IMPRESSION: Single live intrauterine with ultrasound gestational age today of 19 weeks 7 days. Facial profile as well as 4 chamber heart/outflow tracts are not well visualized. Recommend interval follow-up for additional evaluation. Reviewed by: Padmini Cummins MD on 03/29/2021 4:31 PM [facility] Approved by: Padmini Cummins MD on 03/29/2021 4:31 PM [facility] Station ID: [id number]
== END 2021-03-28 16:12 | disposition home or self-care (01) ==
LOC: DI 16:11
PROVIDERS: ATTEND Obstetrics & Gynecology
DX: Z34.82 Encounter for supervision of other normal pregnancy, second trimester (principal); Z36.89 Encounter for other specified antenatal screening

== ENCOUNTER 2021-04-25 10:55 | Outpatient (CLI) | payer OTHER ==
--- NOTE | 2021-04-25 15:50 | Ultrasound Report ---
PROCEDURE: OB F/U or Repeat INDICATIONS: SUPERVISION OF . Incomplete anatomy study. Patient returns for facial pr ofile, four-chamber heart, and outflow tracts. OUTSIDE/PRIOR DATING DATA: Last menstrual period (LMP): Unknown. LMP-based estimated date of delivery (SHERINE): Unknown. First dating scan (date and location): 01/30/2021. Estimated date of delivery (SHERINE) from first dating scan: 08/19/2021. The below data below was generated using the ultrasound SHERINE of 08/19/2021 TECHNIQUE: Real-time scanning was performed of the fetus, with image documentation and biometric measurements. Endovaginal scanning: Not performed COMPARISON: 03/28/2021 FINDINGS: General: A single living intrauterine gestation is present. Presentation: Cephalic Placenta: Placental position is anterior, without previa. Amniotic fluid index: 12.4 cm, within normal limits for gestational age. heart rate: 144 beats per minute. Maternal cervical canal: 5.4 cm long; normal length is 2.5 cm or more. Other: Four-chamber heart with profile are within normal limits. Review of previous study demon strates that the right ventricular outflow tract and left ventricular outflow tract were both well se en on the previous study, and that no additional imaging needed to be performed of these structures. IMPRESSION: Living second trimester intrauterine . Limited imaging of the profile and four-chamber heart completes a normal anatomy study. Reviewed by: Jayme Hernadez MD on 04/25/2021 3:49 PM PST Approved by: Jayme Hernadez MD on 04/25/2021 3:49 PM PST Station ID: [id number]
== END 2021-04-25 10:56 | disposition home or self-care (01) ==
LOC: DI 10:55
PROVIDERS: ATTEND Obstetrics & Gynecology
DX: Z34.92 Encounter for supervision of normal pregnancy, unspecified, second trimester (principal); Z3A.00 Weeks of gestation of pregnancy not specified

== ENCOUNTER 2021-05-23 08:41 | Outpatient (CLI) | payer OTHER ==
[2021-05-23 11:58] LABS: BASOPHILS % (AUTO) 0.3 %; EOSINOPHILS # (AUTO) 0.1 10^3/uL (0.0-0.7); EOSINOPHILS % (AUTO) 0.5 %; HCT - HEMATOCRIT 32.7 % (37.0-47.0); HGB - HEMOGLOBIN 10.7 g/dL (12.0-16.0); LYMPHOCYTES # (AUTO) 1.5 10^3/uL (1.5-3.5); LYMPHOCYTES % (AUTO) 15.7 %; MEAN CORPUSCULAR HEMOGLOBIN 30.4 pg (27.0-31.0); MEAN CORPUSCULAR HGB CONC 32.7 g/dL (32.0-36.0); MEAN CORPUSCULAR VOLUME 92.9 fL (81.0-99.0); MEAN PLATELET VOLUME 10.8 fL (7.9-10.8); MONOCYTES # (AUTO) 0.3 10^3/uL (0.0-1.0); MONOCYTES % (AUTO) 3.6 %; NEUTROPHILS # (AUTO) 7.3 10^3/uL (1.5-6.6); PLT - PLATELET COUNT 240 10^3/uL (130-450); RED BLOOD COUNT 3.52 10^6/uL (4.20-5.40); RED CELL DISTRIBUTION WIDTH 13.4 % (12.0-15.0); WHITE BLOOD COUNT 9.2 x10^3/uL (4.8-10.8)
[2021-05-23 12:25] LABS: THYROID STIMULATING HORMONE 1.89 uIU/mL (0.34-5.60)
[2021-05-23 12:30] LABS: FERRITIN 6.8 ng/mL (11.0-306.8)
[2021-05-23 12:41] LABS: % IRON SATURATION 10 % (20-50); GLUCOSE,1H PP 50GM DOSE 157; IRON 51 ug/dL (28-170); TOTAL IRON BINDING CAPACITY 528 ug/dL (250-450); TRANSFERRIN 377 mg/dL (192-382)
== END 2021-05-23 08:42 | disposition home or self-care (01) ==
LOC: LAB.N 08:41
PROVIDERS: ATTEND Obstetrics & Gynecology
DX: Z36.89 Encounter for other specified antenatal screening (principal); O99.891 Other specified diseases and conditions complicating pregnancy; R00.2 Palpitations
CPT/HCPCS: 36415; 82728; 82950; 83540; 84443; 84466; 85025; 86850

== ENCOUNTER 2021-05-30 07:40 | Outpatient (CLI) | payer OTHER ==
[2021-05-30 08:17] LABS: GTT GLUCOSE,FASTING 91 mg/dL (70-100)
== END 2021-05-30 07:41 | disposition home or self-care (01) ==
LOC: LAB 07:40
PROVIDERS: ATTEND Obstetrics & Gynecology
DX: Z34.80 Encounter for supervision of other normal pregnancy, unspecified trimester (principal)
CPT/HCPCS: 36415; 82951; 82952

== ENCOUNTER 2021-06-13 17:28 | Outpatient (CLI) | payer OTHER ==
[2021-06-13] MEDS ORDERED: ACETAMINOPHEN 500 MG TABLET PO SCH (18:00)
[2021-06-13 19:47] VITALS: BP 124/65
--- NOTE | 2021-06-13 20:47 | PROCEDURE REPORT ---
- HPI Diagnosis/Indication for NST: Other (Severe headache, rule out preeclampsia) Current EDU 08/19/21 Gestation 30 Weeks and 3 Days 3 Para 2 Vital Signs Temperature 98.6 F 06/13/21 17:39 Heart Rate 95 06/13/21 17:39 Blood Pressure 130/76 06/13/21 17:39 O2 Saturation 100 06/13/21 17:39 Temperature 98.6 F 06/13/21 18:18 Heart Rate 82 06/13/21 19:00 Respiratory Rate Blood Pressure 124/65 06/13/21 19:00 O2 Saturation 99 06/13/21 19:00 - NST Procedure NST Procedure Start Date 06/13/21 Start Time 17:50 Stop Time 18:10 Vibroacoustic Stimulation Used No Patient States Movement Yes EFM 145 mod viky 15x15 accels no decels TOCO: quiet - Results and Plan Findings/Impression: Patient is a 26 yo at 30+3 wga here with severe headache and concern for pre-eclampsia. Patient reports she had a severe headache that also correlates with pain in her mid-back from a prior traumatic epidural. No vision change. When calling clinic, it was reported that she had SBPs in the 160-170s. Upon evaluation today, it was learned at the SBPs were 116 and 117. She has not had severe range blood pressures. Blood pressures are normal at this assessment. She was offered acetaminophen for her headache and patient declined. She was discharged to home Cat I tracing. FU in clinic DOS: 06/13/21
== END 2021-06-13 19:30 | disposition home or self-care (01) ==
LOC: WFO 17:28 → FBP 17:30 → WFO 19:30
PROVIDERS: ATTEND Obstetrics & Gynecology
DX: O99.891 Other specified diseases and conditions complicating pregnancy (principal); R51.9 Headache, unspecified; M54.89 Other dorsalgia; Z3A.30 30 weeks gestation of pregnancy; Z87.828 Personal history of other (healed) physical injury and trauma
CPT/HCPCS: 59025; 99215

== ENCOUNTER 2021-06-27 15:57 | Outpatient (CLI) | payer OTHER ==
--- NOTE | 2021-06-28 14:24 | Ultrasound Report ---
PROCEDURE: OB F/U or Repeat INDICATIONS: LARGE FOR GESTATIONAL AGE OUTSIDE/PRIOR DATING DATA: Last menstrual period (LMP): Unknown. First dating scan (date and location): 01/30/2021. Estimated date of delivery (SHERINE) from first dating scan: 08/19/2021. The below data below was generated using the ultrasound SHERINE of 08/19/2021 TECHNIQUE: Real-time scanning was performed of the fetus, with image documentation and biometric measurements. COMPARISON: None. FINDINGS: General: A single living intrauterine gestation is present. Presentation: Vertex Placenta: Placental position is anterior, without previa. Amniotic fluid index: 15.8 cm, normal for gestational age. heart rate: 155 beats per minute. Maternal cervical canal: 5 cm long; normal length is 2.5 cm or more. biometrics: Biparietal diameter: 8.4 cm. 33 weeks 6 days Head circumference: 30.6 cm. 34 weeks 0 days Abdominal circumference: 28.4 cm. 32 weeks 2 days Femur length: 6 cm. 31 weeks 1 day Estimated gestational age from initial scan: 32 weeks 3 days. Composite gestational age from present scan: 32 weeks 6 days Estimated weight and percentile: 1955.8 g. 37th percentile. Measurement variability in biometric dating: +/- 10 days from 12-20 weeks gestation, +/- 2 weeks from 20-30 weeks gestation, +/- 3 weeks at 30 weeks gestation or more. anatomy: Bilateral renal pelviectasis, left greater than right, 6.7 mm on the left and 4.7 mm o n the right, at the upper limits of normal. Upper limits of normal in third trimester is 7 mm. Maternal anatomy: Simple left ovarian cyst is unchanged measuring 4.7 x 2.8 x 3.7 cm. Other: Maternal left ovarian cyst.. IMPRESSION: 1. Single live intrauterine with a composite ultrasound age of 32 weeks 3 days by initial s can. 2. Bilateral renal pelviectasis at the upper limits of normal. Reviewed by: Babar Elizondo on 06/28/2021 2:23 PM PST Approved by: Babar Elizondo on 06/28/2021 2:23 PM PST Station ID: [id number]
== END 2021-06-27 15:58 | disposition home or self-care (01) ==
LOC: DI 15:57
PROVIDERS: ATTEND Obstetrics & Gynecology
DX: O36.63X0 Maternal care for excessive fetal growth, third trimester, not applicable or unspecified (principal); Z3A.32 32 weeks gestation of pregnancy

== ENCOUNTER 2021-07-23 08:00 | Outpatient (CLI) | payer OTHER | END 2021-07-23 23:59 | disposition home or self-care (01) | LOC: LAB.R 08:00 | PROVIDERS: ATTEND Obstetrics & Gynecology | DX: Z36.85 Encounter for antenatal screening for Streptococcus B (principal) | CPT/HCPCS: 87661; 87797; 87801 ==

== ENCOUNTER 2021-08-13 09:55 | Inpatient (IN) | payer OTHER ==
[2021-08-13] MEDS ORDERED: METHYLERGONOVINE 0.2 MG/ML VIAL IM PRN (11:00)
[2021-08-13] MEDS ORDERED: LIDOCAINE-MPF 1% 30 ML VIAL ID PRN (11:00)
[2021-08-13] MEDS ORDERED: SODIUM CHLORIDE FLUSH 0.9% 10 ML SYRINGE IVP SCH (11:00)
[2021-08-13] MEDS ORDERED: OXYTOCIN/SODIUM CHLORIDE 500 ML IV PRN (11:00)
[2021-08-13] MEDS ORDERED: fentaNYL 100 MCG/2 ML VIAL IVP PRN (11:00)
[2021-08-13] MEDS ORDERED: SODIUM CHLORIDE FLUSH 0.9% 10 ML SYRINGE IVP PRN (11:00)
[2021-08-13] MEDS ORDERED: OXYTOCIN 10 UNIT/ML VIAL IM PRN (11:00)
[2021-08-13] MEDS ORDERED: LABETALOL 20 MG/4 ML SYRINGE IVP PRN (11:00)
[2021-08-13] MEDS ORDERED: OXYTOCIN/SODIUM CHLORIDE 500 ML IV SCH (11:00)
[2021-08-13] MEDS ORDERED: miSOPROStoL 200 MCG TABLET BC PRN (11:00)
[2021-08-13] MEDS ORDERED: TRANEXAMIC ACID IN NACL 1,000 MG/100 ML BAG IV PRN (11:00)
[2021-08-13] MEDS ORDERED: TERBUTALINE 1 MG/ML VIAL SUBQ PRN (11:00)
[2021-08-13] MEDS ORDERED: miSOPROStoL 200 MCG TABLET PR PRN (11:00)
[2021-08-13] MEDS ORDERED: CARBOPROST TROMETHAMINE 250 MCG/ML AMP IM PRN (11:00)
[2021-08-13 11:24] LABS: BASOPHILS % (AUTO) 0.2 %; EOSINOPHILS % (AUTO) 0.5 %; HGB - HEMOGLOBIN 10.7 g/dL (12.0-16.0); LYMPHOCYTES # (AUTO) 1.8 10^3/uL (1.5-3.5); LYMPHOCYTES % (AUTO) 20.3 %; MEAN CORPUSCULAR HEMOGLOBIN 29.8 pg (27.0-31.0); MEAN CORPUSCULAR HGB CONC 32.4 g/dL (32.0-36.0); MEAN CORPUSCULAR VOLUME 91.9 fL (81.0-99.0); MEAN PLATELET VOLUME 10.2 fL (7.9-10.8); MONOCYTES # (AUTO) 0.5 10^3/uL (0.0-1.0); MONOCYTES % (AUTO) 6.1 %; NEUTROPHILS # (AUTO) 6.3 10^3/uL (1.5-6.6); NEUTROPHILS % (AUTO) 72.1 %; PLT - PLATELET COUNT 247 10^3/uL (130-450); RED BLOOD COUNT 3.59 10^6/uL (4.20-5.40); RED CELL DISTRIBUTION WIDTH 14.3 % (12.0-15.0); WHITE BLOOD COUNT 8.7 x10^3/uL (4.8-10.8)
--- NOTE | 2021-08-13 11:24 | HISTORY & PHYSICAL EXAMINATION ---
Admit History - Visit Reason Visit Reason: Other (Scheduled elective IOL- social/childcare needs) - : 3 Parity: 2 Care: positive: [facility] Risk/History: positive: None, Labor induction Complications This : positive: None Smoking Status: Never smoker - Mother's Labs Mother's Blood Type: positive: A Mother's RH: positive: Positive GBS: positive: Group B Step Negative Rubella Status: positive: Immune Meds/Allgy - Home Medications Home Medications: Ambulatory Orders Medication Instructions Recorded Confirmed Acetaminophen [Tylenol Extra 500 - 1,000 mg PO Q8H PRN #90 02/25/20 Strength] tablet Docusate Sodium 100 - 200 mg PO BID PRN #60 capsule 02/25/20 Ibuprofen [Motrin] 600 mg PO Q6H PRN #90 tab 02/25/20 - Allergies Allergies/Adverse Reactions: Allergies Allergy/AdvReac Type Severity Reaction Status Date / Time No Known Drug Allergies Allergy Verified 02/23/20 09:39 Review of Systems - Musculoskeletal Musculoskeletal: reports: Back pain - All Other Systems All Other Systems: reports: Reviewed and negative Physical - Abdominal Exam Vital Signs: Temp Pulse Resp BP Pulse Ox 97.8 F 98 18 124/84 H 08/13/21 10:21 08/13/21 10:21 08/13/21 10:21 08/13/21 10:21 Contraction Frequency (min/apart): occasional : EFW 3200g, placenta anterior Contraction Intensity: positive: Mild Uterine Resting Tone: positive: Soft - Monitoring Heart Rate Baseline: 150s, moderate variability, positive 15x15 accelerations, no decelerations Strip Review: positive: Category I - Presentation Presentation: positive: Vertex (palpated SVE) - Vaginal Exam Membranes: positive: Membranes intact Dilation (in cm): 3 Effacement (%): 50 Station: positive: -3 Cervical Position: positive: Posterior - Speculum Exam Speculum Exam Performed: positive: No Plan for Labor - Plan For Labor I expect patient to be DC'd or transferred within 96 hours.: Yes Plan for Labor: 26yo at 39.1w by 11w US admitted for scheduled elective IOL - Admit FBP - CBC, T&S - GBS NEG - Start Pitocin induction - Anticipate today, discharge tomorrow or following day
[2021-08-13] MEDS: LACTATED RINGERS 1,000 ML IV SCH ×2 (11:49→19:45)
[2021-08-13 12:00] LABS: ALBUMIN 3.3 g/dL (3.2-5.5); BILIRUBIN,TOTAL 0.5 mg/dL (0.2-1.0); CALCIUM 9.5 mg/dL (8.5-10.3); CREATININE 0.5 mg/dL (0.4-1.0); POTASSIUM 3.9 mmol/L (3.5-5.0); TOTAL PROTEIN 6.7 g/dL (6.7-8.2)
--- NOTE | 2021-08-13 17:43 | PROVIDER PROGRESS NOTE ---
Labor Progress Note - Uterine Monitoring Contraction Frequency (min/apart): 2 Contraction Intensity: positive: Mild Uterine Resting Tone: positive: Soft - Monitoring Monitor Mode: positive: External ultrasound Heart Rate Baseline: 130 Heart Rate Variability: positive: Moderate (6-25 bmp) Accelerations: positive: Present, 15x15 Decelerations: positive: None Strip Review: positive: Category I - Vaginal Exam Dilation (in cm): 5 Effacement (%): 100 Station: -2 Cervical Position: Midposition - Labor Progress Note Labor Progress Note/Additional Text: 26yo at 39.1w admitted for elective IOL - Continue Pitocin - Progressing well, anticipate tonight - May have epidural prn
--- NOTE | 2021-08-13 20:52 | ANESTHESIA ---
Pre-Anesthesia VS, & Labs - Diagnosis active labor - Procedure vaginal delivery Vital Signs: Temp Pulse Resp BP Pulse Ox 36.6 C 98 18 124/84 H 08/13/21 10:21 08/13/21 10:21 08/13/21 10:21 08/13/21 10:21 Height: 5 ft 4 in Weight (kg): 82.554 kg Body Mass Index: 31.2 BMI Classification: Obese - NPO Other (clear liquids) - Is Patient ?: Yes - Lab Results Current Lab Results: Laboratory Tests 08/13/21 11:17: Sodium 139, Potassium 3.9, Chloride 106, Carbon Dioxide 22, Anion Gap 11.0, BUN 6, Creatinine 0.5, Estimated GFR (MDRD) 147, Glucose 117 H, Calcium 9.5, Total Bilirubin 0.5, AST 18, ALT 11, Alkaline Phosphatase 124 H, Total Protein 6.7, Albumin 3.3, Globulin 3.4, Albumin/Globulin Ratio 1.0 08/13/21 11:17: WBC 8.7, RBC 3.59 L, Hgb 10.7 L, Hct 33.0 L, MCV 91.9, MCH 29.8, MCHC 32.4, RDW 14.3, Plt Count 247, MPV 10.2, Neut # (Auto) 6.3, Lymph # (Auto) 1.8, [place] # (Auto) 0.5, Eos # (Auto) 0.0, Baso # (Auto) 0.0, Absolute Nucleated RBC 0.00, Nucleated RBC % 0.0 08/13/21 11:17: Blood Type A POSITIVE, Antibody Screen NEGATIVE Lab results reviewed: Yes Fish Bones: 08/13/21 11:17 08/13/21 11:17 Home Medications and Allergies Active Medications Carboprost Tromethamine (Carboprost Tromethamine 250 Mcg/Ml Amp) 250 mcg IM .ONCE PRN PRN Reason: Hemorrhage Fentanyl (Fentanyl 100 Mcg/2 Ml Vial) 50 mcg IVP Q1H PRN PRN Reason: Severe Pain (score 7-10) Oxytocin/Sodium Chloride (Pitocin/Sodium Chloride) 500 mls @ 999 mls/hr IV PRN PRN; Protocol PRN Reason: POST- HEMORR PREVENTION Tranexamic Acid (Tranexamic 1,000 Mg/100ml-Nacl) 1,000 mg in 100 mls @ 600 mls/hr IV Q30M PRN PRN Reason: EBL >1200mL and within 3hr Lactated Ringer's (Lr) 1,000 mls @ 125 mls/hr IV .Q8H [facility] Last Admin: 08/13/21 11:49 Dose: 125 mls/hr Oxytocin/Sodium Chloride (Pitocin/Sodium Chloride) 500 mls @ 2 mls/hr IV TITR JOHN; Protocol Last Titration: 08/13/21 16:40 Dose: 10 milliunit/min, 10 mls/hr Labetalol HCl (Labetalol 20 Mg/4 Ml Syringe) 20 - 80 mg IVP Q10M PRN; Protocol PRN Reason: SBP> or= 160 OR DBP> or= 110 Lidocaine HCl (Lidocaine-Mpf 1% 30 Ml Vial) 30 ml ID ONCE PRN PRN Reason: PERINEAL REPAIR Stop: 08/14/21 11:00 Methylergonovine Maleate (Methylergonovine 0.2 Mg/Ml Vial) 0.2 mg IM .ONCE PRN PRN Reason: Hemorrhage Misoprostol (Misoprostol 200 Mcg Tablet) 600 mcg BC .ONCE PRN PRN Reason: Hemorrhage Misoprostol (Misoprostol 200 Mcg Tablet) 800 mcg TX .ONCE PRN PRN Reason: Hemorrhage Oxytocin (Oxytocin 10 Unit/Ml Vial) 10 unit IM .ONCE PRN PRN Reason: Step One if no IV access. Sodium Chloride (Sodium Chloride Flush 0.9% 10 Ml Syringe) 10 ml IVP PRN PRN PRN Reason: NEEDED PER PROVIDER ORDERS Sodium Chloride (Sodium Chloride Flush 0.9% 10 Ml Syringe) 10 ml IVP Q8H [facility] Last Admin: 08/13/21 11:50 Dose: 10 ml Terbutaline Sulfate (Terbutaline 1 Mg/Ml Vial) 0.25 mg SUBQ ONCE PRN PRN Reason: Tachystole Stop: 08/16/21 10:59 Allergies/Adverse Reactions: Allergies Allergy/AdvReac Type Severity Reaction Status Date / Time No Known Drug Allergies Allergy Verified 02/23/20 09:39 Anes History & Medical History - Anesthetic History Anesthesia Complications: reports: No previous complications - Medical History Cardiovascular: reports: None Pulmonary: reports: None Gastrointestinal: reports: GERD Urinary: reports: None Neuro: reports: None Musculoskeletal: reports: None Endocrine/Autoimmune: reports: None Blood Disorders: reports: None Smoking Status: Never smoker Psychosocial: reports: Anxiety History of Cancer?: No - Surgical History General: reports: Other (cyst removal) - Obstetrical History : 3 Parity: 2 Events: reports: None, Labor induction Complications: reports: None Exam General: Alert, Oriented x3, Cooperative, No acute distress Dental: WNL Mouth Openin Fingerbreadth Neck Mobility: Normal Mallampati classification: II Thyromental Distance: 4-6 cm Mental/Cognitive Status: Alert/Oriented X3, Normal for patient Plan Anesthesia Type: Epidural Consent for Procedure(s) Verified and Reviewed: Yes Code Status: Attempt Resuscitation ASA classification: 2-Mild systemic disease Is this case an emergency?: No
[2021-08-13] MEDS ORDERED: ePHEDrine 50 MG/ML VIAL IVP PRN (20:55)
[2021-08-13] MEDS ORDERED: NALOXONE 0.4 MG/ML VIAL IVP PRN (20:55)
[2021-08-13] MEDS ORDERED: ROPIVACAINE 0.2% 200 MG/100 ML BAG EP PRN (20:55)
[2021-08-13] MEDS ORDERED: ROPIVACAINE 0.2% 200 MG/100 ML BAG EP ONE (20:57)
[2021-08-13] MEDS ORDERED: SODIUM CHLORIDE 0.9% 10 ML VIAL IVP ONE (21:28)
[2021-08-13] MEDS ORDERED: fentaNYL 100 MCG/2 ML VIAL ONE (21:28)
[2021-08-13] MEDS ORDERED: VARICELLA VACCINE LIVE/PF 1,350 UNIT/0.5 ML VIAL SUBQ ONE (22:45)
[2021-08-13] MEDS ORDERED: TETANUS/DIPHTHERIA/PERTUSSIS 0.5 ML SYRINGE IM ONE (22:45)
[2021-08-13] MEDS ORDERED: HYDROCORTISONE 1% CREAM 28 GM TUBE PR PRN (22:45)
[2021-08-13] MEDS ORDERED: WITCH HAZEL/GLYCERIN 1 PAD TOP PRN (22:45)
[2021-08-13] MEDS ORDERED: MEASLES,MUMPS & RUBELLA VACC 0.5 ML VIAL SUBQ ONE (22:45)
--- NOTE | 2021-08-13 22:53 | DELIVERY NOTE ---
Delivery Note - Labor Labor: positive: Spontaneous, Augmented by ARM, Induced by oxytocin - Delivery Method Infant Delivery Method: positive: Spontaneous vaginal delivery - Presentation Presentation: positive: Vertex - Nuchal Cord Nuchal Cord: positive: Present (Nuchal x1 reduced after delivery) - Anesthetic Anesthetic Type: - Amniotic Fluid Description Amniotic Fluid Description: positive: Clear - Episiotomy Type Episiotomy Type: positive: None - Laceration Laceration: positive: None - Delivery Outcome Delivery Outcome: positive: Livebirth - [place]: positive: Placed in direct skin contact with mother, Bulb syringe, Stimulated, Warmed, [place] used [place] sex: positive: Male - Cord Cord: positive: 3 vessels - Placenta Placenta: positive: Intact, Spontaneous - Estimated Blood Loss Estimated Blood Loss (in cc): 200 - Post Delivery Events Post Delivery Events: positive: No post delivery events - Delivery Comments (Free Text/Narrative) Delivery Comments (Free Text/Narrative): Called to room as patient was feeling pressure. 10/100/+2. Maternal pushing with good efforts. Head delivered. Nuchal cord x1 noted and this was reduced after delivery. Shoulders and body delivered with ease. Baby boy placed on mother's abdomen. Nuchal cord reduced. Delayed cord clamping. Fundus firm. Placenta delivered spontaneously and intact, 3vc. Vagina and perineum inspected- no lacerations. Family bonding at bedside.
[2021-08-13] MEDS: ACETAMINOPHEN 325 MG TABLET PO PRN (23:50)
[2021-08-13] MEDS: IBUPROFEN 800 MG TABLET PO SCH (23:51)
[2021-08-13] MEDS ORDERED: miSOPROStoL 200 MCG TABLET ONE (23:57)
[2021-08-14] MEDS: IBUPROFEN 800 MG TABLET PO SCH ×4 (05:51→19:39)
[2021-08-14] MEDS: DOCUSATE SODIUM 100 MG CAPSULE PO SCH ×2 (08:06→19:39)
[2021-08-14] MEDS: ACETAMINOPHEN 325 MG TABLET PO PRN ×3 (08:07→19:38)
--- NOTE | 2021-08-14 10:51 | PROVIDER PROGRESS NOTE ---
Subjective - Prog Note Date Prog Note Date: 08/14/21 Prog Note Time: 10:51 - Subjective Subjective: Subjective Patient reports she is doing well. Lochia appropriate. Denies heavy bleeding. Ambulating. Pelvic and abdominal pain well-controlled. Tolerating oral intake. Diet: Regular. Voiding without difficulty. Passing flatus. Denies BM. Patient is bonding with baby in room Breast feeding going well. Denies feeling lightheaded, dizzy or excessively fatigued. Objective General: Alert, oriented, no apparent distress. Cardiovascular: Regular rate. Regular rhythm. Lungs: No increased work of breathing. Abdomen: Uterus firm. Below umbilicus. No guarding or rebound. Assessment and Plan day 1. -Routine care -Anticipate discharge tomorrow Objective - Vital Signs/Intake & Output Vital Signs: Vital Signs x48h Temp Pulse Resp BP Pulse Ox 08/14/21 07:57 97.5 F L 65 18 116/65 100 08/14/21 05:45 98.1 F 68 16 109/66 100 Intake & Output: Intake & Output 08/11/21 08/12/21 08/13/21 08/14/21 23:59 23:59 23:59 23:59 Intake Total 2016.000 2118.417 Output Total 1280 Balance 2016.000 838.417 - Lab Results Fish Bones: 08/13/21 11:17 08/13/21 11:17 Other Labs: Lab Results x24hrs 08/13/21 08/13/21 08/13/21 Range/Units 11:17 11:17 11:17 WBC 8.7 (4.8-10.8) x10^3/uL RBC 3.59 L (4.20-5.40) 10^6/uL Hgb 10.7 L (12.0-16.0) g/dL Hct 33.0 L (37.0-47.0) % MCV 91.9 (81.0-99.0) fL MCH 29.8 (27.0-31.0) pg MCHC 32.4 (32.0-36.0) g/dL RDW 14.3 (12.0-15.0) % Plt Count 247 (130-450) 10^3/uL MPV 10.2 (7.9-10.8) fL Neut # (Auto) 6.3 (1.5-6.6) 10^3/uL Lymph # (Auto) 1.8 (1.5-3.5) 10^3/uL Yell # (Auto) 0.5 (0.0-1.0) 10^3/uL Eos # (Auto) 0.0 (0.0-0.7) 10^3/uL Baso # (Auto) 0.0 (0.0-0.1) 10^3/uL Absolute Nucleated RBC 0.00 x10^3/uL Nucleated RBC % 0.0 /100WBC Sodium 139 (135-145) mmol/L Potassium 3.9 (3.5-5.0) mmol/L Chloride 106 (101-111) mmol/L Carbon Dioxide 22 (21-32) mmol/L Anion Gap 11.0 (6-13) BUN 6 (6-20) mg/dL Creatinine 0.5 (0.4-1.0) mg/dL Estimated GFR (MDRD) 147 (>89) Glucose 117 H (70-100) mg/dL Calcium 9.5 (8.5-10.3) mg/dL Total Bilirubin 0.5 (0.2-1.0) mg/dL AST 18 (10-42) IU/L ALT 11 (10-60) IU/L Alkaline Phosphatase 124 H (42-121) IU/L Total Protein 6.7 (6.7-8.2) g/dL Albumin 3.3 (3.2-5.5) g/dL Globulin 3.4 (2.1-4.2) g/dL Albumin/Globulin Ratio 1.0 (1.0-2.2) Blood Type A POSITIVE Antibody Screen NEGATIVE
[2021-08-15] MEDS: ACETAMINOPHEN 325 MG TABLET PO PRN ×2 (00:18→03:57)
[2021-08-15] MEDS: IBUPROFEN 800 MG TABLET PO SCH ×2 (03:56→10:05)
[2021-08-15 09:45] VITALS: BP 125/75
[2021-08-15] MEDS: DOCUSATE SODIUM 100 MG CAPSULE PO SCH (10:05)
--- NOTE | 2021-08-15 11:11 | Discharge Plan ---
Discharge Plan Problem Reviewed?: Yes Disposition: Home, Self Care Condition: Good Diet: Regular Activity Restrictions: Additional Comments Shower Restrictions: No Instruction Topics: Vaginal After No Smoking: If you smoke, Please STOP! Call for help. Follow-up with: Fer León MD [Provider Admit Priv/Credential] -
--- NOTE | 2021-08-15 11:12 | DISCHARGE SUMMARY ---
Discharge Summary Condition at Discharge: Good Discharge Disposition: 01 Home, Self Care - DIAGNOSES Admission Diagnoses: 39 weeks gestation Induction of labor. Discharge Diagnoses with Status of Each Condition: 39 weeks gestation Induction of labor Status post spontaneous vaginal delivery. - HPI History of Present Illness: Subjective Patient reports she is doing well. Lochia appropriate. Denies heavy bleeding. Ambulating. Pelvic and abdominal pain well-controlled. Tolerating oral intake. Diet: Regular. Voiding without difficulty. Passing flatus. Denies BM. Patient is bonding with baby in room Breast feeding going well. Denies feeling lightheaded, dizzy or excessively fatigued. Objective General: Alert, oriented, no apparent distress. Cardiovascular: Regular rate. Regular rhythm. Lungs: No increased work of breathing. Abdomen: Uterus firm. Below umbilicus. No guarding or rebound. - HOSPITAL COURSE Hospital Course: Patient was a 26-year-old G3, P2 at 39 weeks 1 day gestation who presented for an elective induction of labor. She was 3 cm on arrival with intact membranes. Induction was started with oxytocin without significant complications. She progressed on induction day 1 to complete and had an uncomplicated delivery other than a reduced nuchal cord. course was uneventful, and she was discharged on day 2 with her . weight: 3477 g - ALLERGIES Allergies/Adverse Reactions: Allergies Allergy/AdvReac Type Severity Reaction Status Date / Time No Known Drug Allergies Allergy Verified 02/23/20 09:39 - MEDICATIONS Home Medications: Ambulatory Orders Medication Instructions Recorded Confirmed Acetaminophen [Tylenol Extra 500 - 1,000 mg PO Q8H PRN #90 02/25/20 Strength] tablet Docusate Sodium 100 - 200 mg PO BID PRN #60 capsule 02/25/20 Ibuprofen [Motrin] 600 mg PO Q6H PRN #90 tab 02/25/20 Acetaminophen [Acetaminophen Extra 1,000 mg PO Q8H PRN #60 tablet 08/15/21 Strength] Ibuprofen [Motrin] 600 mg PO Q6H PRN #30 tab 08/15/21 - LABS Result Diagrams: 08/13/21 11:17 08/13/21 11:17 - FOLLOW UP Follow Up: With Dr. León in 1 week at [facility] - TIME SPENT Time Spent in Discharge (Minutes): 20
--- NOTE | 2021-08-15 13:19 | Labor Flowsheet ---
Labor Flowsheet Datetime Report Generated by CPN: 08/15/2021 13:18 Datetime: 08/15/2021 08:23 VITAL SIGNS NBP Sys/Laney/Mean (mmHg): 125 : 75 : 87 Pulse: 74 Datetime: 08/15/2021 03:54 SpO2 (%): 100 Datetime: 08/14/2021 00:15 PAIN Pain Scale: 0 Pain Presence: Intermittent Pain Type: Cramping Pain Location: Abdomen Pain Goal: 3 Pain Relief Measures: Pain Medication Given Pain Assessment Comments: Datetime: 08/14/2021 00:00 Respirations: 18 Datetime: 08/13/2021 23:55 Cervical Ripening Agents: Cytotec @ (Annotations: 800mcg [place]) ANESTHESIA Epidural Procedure: Completed Epidural Procedure Other: Cath Removed; Cath Intact Anesthesia Level Check: T11 TEACHING Instructional Method: Verbal; Patient Instructed; Family/Support Person Instructed; Verbalized Unde rstanding Datetime: 08/13/2021 23:50 Analgesics/Sedatives: Tylenol (mg) @ (Annotations: 650mg PO) Medication Comments: Ibuprofen 800mg PO Datetime: 08/13/2021 23:15 Stage of : Recovery Temperature (C): 37.3 Temperature Route: Oral COMMUNICATION Communication: RN at Bedside Notification Reason: Status Update; Bleeding Communication Comments: RN to RN report; care assumed Datetime: 08/13/2021 23:02 LaborFlag: Labor Datetime: 08/13/2021 22:35 Stage 2 Comments: Bladder emptied by Dr. Armijo Datetime: 08/13/2021 22:34 Anesthesia Comments: Epidural pump stopped Datetime: 08/13/2021 22:27 Comments: Spontaneous delivery infant male Datetime: 08/13/2021 22:20 Vital Sign Comments: BP reading difficulty after epidural placement d/t pt shaking. Alebrto Arlet CR NA and Dr. Armijo notified. Dr. Armijo ok to d/c blood pressure reading while pushing. Datetime: 08/13/2021 22:00 UTERINE ACTIVITY Monitor Mode: External Frequency (min): 2-3 Duration (sec): 80-100 ASSESSMENT A Monitor Mode: External US FHR Baseline Rate : 135 Variability: Moderate 6-25 bpm Accelerations: 15X15 Category: Category I VAGINAL EXAM Dilatation (cm): 10.0 Effacement (%): 10 Exam by: Dr. [place] STAGE 2 Pushing: Coached on Pushing Pushing Position: Pushing with Contractions Datetime: 08/13/2021 21:30 Decelerations: Early Datetime: 08/13/2021 21:19 PATIENT CARE IV/Blood Work: New IV Bag Hung Datetime: 08/13/2021 21:13 Patient Care Comments: pt ctx Datetime: 08/13/2021 20:58 PROCEDURE TIME OUT Procedure Verify: Correct Patient Position Datetime: 08/13/2021 20:24 Pain Coping: Requesting Pain Medication or Epidural Datetime: 08/13/2021 20:03 MATERNAL ASSESSMENT Level of Consciousness: Alert Headache: Denies Nausea/Vomiting: Denies Datetime: 08/13/2021 20:00 FHR Baseline Changes: No Baseline Change Datetime: 08/13/2021 19:32 Vaginal Exam Comments: No change from savanna SVE Datetime: 08/13/2021 19:30 Pattern: Normal: <= 5 Contractions in 10 Minutes Resting Tone (Palpate): Relaxed Datetime: 08/13/2021 19:24 I/O Interventions: Up to BR Datetime: 08/13/2021 19:08 Comfort Measures: Family Support Datetime: 08/13/2021 19:00 Quality: Moderate Datetime: 08/13/2021 18:00 Contraction Comments: pt more uncomfortable Datetime: 08/13/2021 17:36 Station: -2 Membrane Status: Ruptured Membranes Rupture Method: Artificial Amniotic Fluid Color: Clear Amniotic Fluid Amount: Moderate Amniotic Fluid Odor: Normal Datetime: 08/13/2021 16:38 MEDICATIONS Pitocin (milliunits): Increased to @ 10
== END 2021-08-15 11:30 | disposition home or self-care (01) | DRG 807 ==
LOC: WFO 09:55 → FBP 09:59 → WFO 10:59 → FBP 11:00
PROVIDERS: ADMIT Obstetrics & Gynecology; ATTEND Obstetrics & Gynecology
PROC: 10907ZC Drainage of Amniotic Fluid, Therapeutic from Products of Conception, Via Natural or Artificial Opening (ICD-10-PCS; principal; 2021-08-13)
PROC: 10E0XZZ Delivery of Products of Conception, External Approach (ICD-10-PCS; 2021-08-13)
PROC: 3E033VJ Introduction of Other Hormone into Peripheral Vein, Percutaneous Approach (ICD-10-PCS; 2021-08-13)
DX: O69.81X0 Labor and delivery complicated by cord around neck, without compression, not applicable or unspecified (principal); Z37.0 Single live birth; Z3A.39 39 weeks gestation of pregnancy; O99.214 Obesity complicating childbirth
CPT/HCPCS: 80053; 85025; 86850; 86900; 86901; A9270; J7120

== ENCOUNTER 2021-08-19 13:56 | Emergency (ER) | payer OTHER ==
[2021-08-19] MEDS ORDERED: SODIUM CHLORIDE 0.9% 1,000 ML IV STA (14:15)
--- NOTE | 2021-08-19 14:17 | ED Physician Documentation ---
History of Present Illness - Stated complaint Stated Complaint: WEAKNESS - Chief complaint Chief Complaint: Cardiac - History obtained from History obtained from: Patient, Family - History of Present Illness Timing: Last night Pain level max: 0 Pain level now: 0 - Additonal information Additional information: 26-year-old female, 3, para 3 status post vaginal delivery after induction about 5 days ago. States last night she began to feel like she was having increasing anxiety again. She states occasionally her chest feels tight, occasionally she feels mildly short of breath. States that the bleeding has decreased. She is breast-feeding. Not currently on any medications. She states occasionally she will have numbness and tingling in her arms as well. Nothing seems to make it better or worse. She states she feels very dehydrated as well like she is not drinking enough water. No headache. Review of Systems Constitutional: denies: Fever, Chills GI: denies: Vomiting, Diarrhea : denies: Dysuria, Frequency, Hesitancy Skin: denies: Rash Musculoskeletal: denies: Neck pain Neurologic: denies: Headache PD PAST MEDICAL HISTORY - Past Medical History Cardiovascular: None Respiratory: None Neuro: None Endocrine/Autoimmune: None GI: GERD : None Musculoskeletal: None - Past Surgical History General: Other (cyst removal) - Present Medications Home Medications: Ambulatory Orders Medication Instructions Recorded Confirmed Acetaminophen [Tylenol Extra 500 - 1,000 mg PO Q8H PRN #90 02/25/20 08/19/21 Strength] tablet Docusate Sodium 100 - 200 mg PO BID PRN #60 capsule 02/25/20 08/19/21 Ibuprofen [Motrin] 600 mg PO Q6H PRN #30 tab 08/15/21 08/19/21 Pnv No.95/Ferrous Fum/Folic AC 1 each PO DAILY 08/19/21 08/19/21 [ Tablet] - Allergies Allergies/Adverse Reactions: Allergies Allergy/AdvReac Type Severity Reaction Status Date / Time No Known Drug Allergies Allergy Verified 08/19/21 13:58 - Social History Smoking Status: Never smoker PD ED PE NORMAL - Vitals Vital signs reviewed: Yes - General General: Alert and oriented X 3, No acute distress - HEENT HEENT: Moist mucous membranes - Neck Neck: Supple, no meningeal sign - Cardiac Cardiac: RRR, No murmur, Strong equal pulses - Respiratory Respiratory: No respiratory distress, Clear bilaterally - Abdomen Abdomen: Soft, Non tender, Non distended - Derm Derm: Warm and dry, No rash - Extremities Extremities: No edema - Neuro Neuro: Alert and oriented X 3 - Psych Psych: Normal mood, Normal affect Results - Vitals Vitals: Vital Signs - 24 hr 08/19/21 08/19/21 08/19/21 14:00 15:30 15:53 Temperature 36.6 C Heart Rate 57 L 56 L 55 L Respiratory 16 14 12 Rate Blood Pressure 155/87 H 135/89 H 148/88 H O2 Saturation 100 100 100 08/19/21 08/19/21 16:28 16:46 Temperature Heart Rate 59 L 55 L Respiratory Rate Blood Pressure 161/102 H 122/79 O2 Saturation 100 Oxygen O2 Source Room air - EKG (time done) 1409 Rate: Rate (enter#) (56) Rhythm: NSR [place]: Normal Intervals: Normal [place] QRS: Normal Ischemia: Normal ST segments - Labs Labs: Laboratory Tests 08/19/21 08/19/21 08/19/21 14:35 14:35 14:35 WBC 8.7 RBC 4.05 L Hgb 12.0 Hct 36.7 L MCV 90.6 MCH 29.6 MCHC 32.7 RDW 13.8 Plt Count 279 MPV 9.5 Neut # (Auto) Not Reportable Lymph # (Auto) Not Reportable [place] # (Auto) Not Reportable Eos # (Auto) Not Reportable Baso # (Auto) Not Reportable Absolute Nucleated RBC Not Reportable Total Counted 100 Band Neuts % (Manual) 0 Reactive Lymphs % (Man) 6 Abnorm Lymph % (Manual) 0 Nucleated RBC % Not Reportable Neutrophils # (Manual) 5.7 Lymphocytes # (Manual) 3.0 Monocytes # (Manual) 0.1 Eosinophils # (Manual) 0.0 Basophils # (Manual) 0.0 Differential Comment MANUAL DIFFERENTIAL Platelet Estimate NORMAL (130-450,000) Platelet Morphology RARE GIANT PLATELETS RBC Morph Micro Appear NORMAL APPEARANCE Sodium 134 L Potassium 3.5 Chloride 99 L Carbon Dioxide 23 Anion Gap 12.0 BUN 14 Creatinine 0.7 Estimated GFR (MDRD) 100 Glucose 93 Calcium 8.6 Total Bilirubin 0.5 AST 19 ALT 29 Alkaline Phosphatase 82 Troponin I High Sens 3.7 B-Natriuretic Peptide Total Protein 7.1 Albumin 3.3 Globulin 3.8 Albumin/Globulin Ratio 0.9 L Lipase 29 Urine Color Urine Clarity Urine pH Ur Specific [place] Urine Protein Urine Glucose (UA) Urine Ketones Urine Occult Blood Urine Nitrite Urine Bilirubin Urine Urobilinogen Ur Leukocyte Esterase Urine RBC Urine WBC Ur Squamous Epith Cells Urine Bacteria Ur Microscopic Review Urine Culture Comments 08/19/21 08/19/21 14:35 15:46 WBC RBC Hgb Hct MCV MCH MCHC RDW Plt Count MPV Neut # (Auto) Lymph # (Auto) [place] # (Auto) Eos # (Auto) Baso # (Auto) Absolute Nucleated RBC Total Counted Band Neuts % (Manual) Reactive Lymphs % (Man) Abnorm Lymph % (Manual) Nucleated RBC % Neutrophils # (Manual) Lymphocytes # (Manual) Monocytes # (Manual) Eosinophils # (Manual) Basophils # (Manual) Differential Comment Platelet Estimate Platelet Morphology RBC Morph Micro Appear Sodium Potassium Chloride Carbon Dioxide Anion Gap BUN Creatinine Estimated GFR (MDRD) Glucose Calcium Total Bilirubin AST ALT Alkaline Phosphatase Troponin I High Sens B-Natriuretic Peptide 102 H Total Protein Albumin Globulin Albumin/Globulin Ratio Lipase Urine Color YELLOW Urine Clarity TURBID Urine pH 5.5 Ur Specific [place] <=1.005 Urine Protein NEGATIVE Urine Glucose (UA) NEGATIVE Urine Ketones NEGATIVE Urine Occult Blood LARGE H Urine Nitrite NEGATIVE Urine Bilirubin NEGATIVE Urine Urobilinogen 0.2 (NORMAL) Ur Leukocyte Esterase MODERATE H Urine RBC 6-10 H Urine WBC 11-25 H Ur Squamous Epith Cells FEW Squamous Urine Bacteria Few Ur Microscopic Review INDICATED Urine Culture Comments INDICATED - Rads (name of study) cxr Radiology: Final report received, EMP read contemporaneously, See rad report PD MEDICAL DECISION MAKING - ED course Complexity details: reviewed results, re-evaluated patient, considered differential, d/w patient ED course: Patient symptoms fully resolved with IV fluids and Ativan. States feels much better. No significant lab abnormalities. Did have mild hypertension initially, this resolved and was down to 122 systolic at the time of discharge. No proteinuria. Discussed the case with Dr. León, OB on-call who will follow up with the patient in clinic this week. No evidence of pulmonary embolus, DVT, sepsis. Urinalysis appears likely contaminated. Patient is asymptomatic. We will await culture. Patient counseled regarding signs and symptoms for which I believe and urgent re-evaluation would be necessary. Patient with good understanding of and agreement to plan and is comfortable going home at this time This document was made in part using voice recognition software. While efforts are made to proofread this document, sound alike and grammatical errors may occur. Departure - Departure Disposition: 01 Home, Self Care Clinical Impression: Dehydration, Anxiety, Elevated blood pressure reading Condition: Good Instructions: ED Dehydration Follow-Up: Provider,Other [Primary Care Provider] - Fer León MD [Provider Admit Priv/Credential] - Within 3 Days Comments: Please follow-up with OB for further care. I discussed your case with Dr. Mau sutherland. The Ativan seems to have helped your symptoms significantly. You also felt better after IV fluids. Your blood work does not show any acute abnormalities. There is no protein in your urine. Your urinalysis is likely contaminated from the vaginal bleeding that you are still having, we will await culture to see if this needs to be treated as you are not having symptoms. Please return to the emergency department if you worsen or symptoms recur. Discharge Date/Time: 08/19/21 17:16
[2021-08-19 14:43] LABS: BASOPHILS % (AUTO) 0.3 %; RED CELL DISTRIBUTION WIDTH 13.8 % (12.0-15.0)
--- NOTE | 2021-08-19 14:43 | XRAY Report ---
PROCEDURE: Chest 1 View X-Ray INDICATIONS: chest pain TECHNIQUE: One view of the chest was acquired. COMPARISON: None FINDINGS: Surgical changes and devices: None. Lungs and pleura: No pleural effusions or pneumothorax. Lungs are clear. Mediastinum: Mediastinal contours appear normal. Heart size is normal. Bones and chest wall: No suspicious bony lesions. Overlying soft tissues appear unremarkable. IMPRESSION: No acute cardiopulmonary disease process. Reviewed by: Carmen Sandoval MD, PhD on 08/19/2021 2:42 PM PDT Approved by: Carmen Sandoval MD, PhD on 08/19/2021 2:42 PM PDT Station ID: [id number]
[2021-08-19 14:46] LABS: EOSINOPHILS % (AUTO) 0.8 %; HCT - HEMATOCRIT 36.7 % (37.0-47.0); LYMPHOCYTES % (AUTO) 24.4 %; MEAN CORPUSCULAR HEMOGLOBIN 29.6 pg (27.0-31.0); MEAN CORPUSCULAR HGB CONC 32.7 g/dL (32.0-36.0); MEAN CORPUSCULAR VOLUME 90.6 fL (81.0-99.0); MEAN PLATELET VOLUME 9.5 fL (7.9-10.8); MONOCYTES % (AUTO) 4.8 %; NEUTROPHILS % (AUTO) 69.2 %; PLT - PLATELET COUNT 279 10^3/uL (130-450); RED BLOOD COUNT 4.05 10^6/uL (4.20-5.40); WHITE BLOOD COUNT 8.7 x10^3/uL (4.8-10.8)
[2021-08-19 14:49] LABS: ABNORMAL LYMPHS % (MANUAL) 0 %; BAND NEUTROPHILS % (MANUAL) 0 %
[2021-08-19 14:58] LABS: ALBUMIN 3.3 g/dL (3.2-5.5); ALBUMIN/GLOBULIN RATIO 0.9 (1.0-2.2); BILIRUBIN,TOTAL 0.5 mg/dL (0.2-1.0); CALCIUM 8.6 mg/dL (8.5-10.3); CREATININE 0.7 mg/dL (0.4-1.0); POTASSIUM 3.5 mmol/L (3.5-5.0); TOTAL PROTEIN 7.1 g/dL (6.7-8.2)
[2021-08-19 15:22] LABS: LYMPHOCYTES % (MANUAL) 28 %; MONOCYTES # (MANUAL) 0.1 10^3/uL (0.0-1.0); NEUTROPHILS # (MANUAL) 5.7 10^3/uL (1.5-6.6); REACTIVE LYMPHS % (MANUAL) 6 %
[2021-08-19 15:23] LABS: DIFFERENTIAL COMMENT MANUAL DIFFERENTIAL; PLATELET ESTIMATE, MANUAL NORMAL (130-450,000) (NORMAL); PLATELET MORPHOLOGY RARE GIANT PLATELETS (NORMAL); RBC MORPHOLOGY (MULTIPLE) NORMAL APPEARANCE (NORMAL)
[2021-08-19 15:51] LABS: BILIRUBIN,URINE NEGATIVE (NEGATIVE); GLUCOSE, URINE (UA) NEGATIVE (NEGATIVE); KETONES,URINE (UA) NEGATIVE (NEGATIVE); LEUKOCYTE ESTERASE, URINE MODERATE (NEGATIVE); NITRITE,URINE NEGATIVE (NEGATIVE); OCCULT BLOOD,URINE LARGE (NEGATIVE); PH,URINE 5.5 PH (5.0-7.5); PROTEIN,URINE NEGATIVE (NEGATIVE); UROBILINOGEN,URINE 0.2 (NORMAL) E.U./dL (NORMAL)
[2021-08-19] MEDS ORDERED: LORazepam 2 MG/ML VIAL IVP STA (15:53)
[2021-08-19 15:58] LABS: CLARITY,URINE TURBID (CLEAR)
[2021-08-19 15:59] LABS: BACTERIA,URINE Few /HPF (None Seen); SQUAMOUS EPITHELIAL CELL,UR FEW Squamous (<= Few)
[2021-08-19 16:46] VITALS: BP 122/79
== END 2021-08-19 17:16 | disposition home or self-care (01) ==
LOC: ED 13:56
DX: O99.345 Other mental disorders complicating the puerperium (principal); O99.893 Other specified diseases and conditions complicating puerperium; E86.0 Dehydration; R03.0 Elevated blood-pressure reading, without diagnosis of hypertension; R82.90 Unspecified abnormal findings in urine
CPT/HCPCS: 36415; 71045; 80053; 81001; 83690; 83880; 84484; 85025; 87077; 87086; 87181; 93005; 96374; 99284; J2060; 81003

== ENCOUNTER 2021-08-29 14:30 | Inpatient (IN) | payer OTHER ==
[2021-08-29 14:26] LABS: BASOPHILS % (AUTO) 0.4 %; EOSINOPHILS % (AUTO) 0.4 %; HCT - HEMATOCRIT 41.6 % (37.0-47.0); HGB - HEMOGLOBIN 13.5 g/dL (12.0-16.0); LYMPHOCYTES # (AUTO) 2.3 10^3/uL (1.5-3.5); LYMPHOCYTES % (AUTO) 27.3 %; MEAN CORPUSCULAR HEMOGLOBIN 29.5 pg (27.0-31.0); MEAN CORPUSCULAR HGB CONC 32.5 g/dL (32.0-36.0); MEAN PLATELET VOLUME 9.5 fL (7.9-10.8); MONOCYTES # (AUTO) 0.4 10^3/uL (0.0-1.0); MONOCYTES % (AUTO) 4.3 %; NEUTROPHILS # (AUTO) 5.6 10^3/uL (1.5-6.6); NEUTROPHILS % (AUTO) 67.2 %; PLT - PLATELET COUNT 364 10^3/uL (130-450); RED BLOOD COUNT 4.57 10^6/uL (4.20-5.40); RED CELL DISTRIBUTION WIDTH 13.9 % (12.0-15.0); WHITE BLOOD COUNT 8.3 x10^3/uL (4.8-10.8)
[~2021-08-29 14:30] MED LIST: MAGNESIUM SULFATE 4 GRAM 4 GM/50 ML BAG IV ONE; ONDANSETRON 4 MG/2 ML VIAL IVP PRN
[2021-08-29 14:41] LABS: ALBUMIN 4.4 g/dL (3.2-5.5); ALBUMIN/GLOBULIN RATIO 1.1 (1.0-2.2); BILIRUBIN,TOTAL 0.7 mg/dL (0.2-1.0); CALCIUM 9.6 mg/dL (8.5-10.3); CREATININE 0.9 mg/dL (0.4-1.0); POTASSIUM 3.2 mmol/L (3.5-5.0); TOTAL PROTEIN 8.3 g/dL (6.7-8.2)
[2021-08-29] MEDS: LACTATED RINGERS 500 ML IV SCH (14:42)
[2021-08-29] MEDS ORDERED: NIFEdipine 10 MG CAPSULE PO PRN (14:51)
[2021-08-29] MEDS ORDERED: NIFEdipine 10 MG CAPSULE PO ONE ×2 (15:03→15:29)
[2021-08-29] MEDS: MAGNESIUM SULFATE IN WATER 20 GM/500 ML IV.SOLN IV SCH (15:12)
[2021-08-29] MEDS: ACETAMINOPHEN 500 MG TABLET PO PRN (15:14)
[2021-08-29] MEDS: LABETALOL 20 MG/4 ML SYRINGE IVP PRN (15:20)
[2021-08-29] MEDS: NIFEdipine 10 MG CAPSULE PO PRN (15:20)
--- NOTE | 2021-08-29 17:33 | HISTORY & PHYSICAL EXAMINATION ---
Admit History - Visit Reason Visit Reason: Other (severe range blood pressures) - Smoking Status: Never smoker - Other Maternal History Other Maternal History: ID: [id number] s/p on 08/13/21 here with severe range blood pressures. HPI: Patient had a reportedly uncomplicated vaginal delivery on 08/13/21. She was seen in the ED on 08/19/21 with chest pain and palpitations. At that time, she had mild range blood pressures, normal EKG, and normal labs with negative urine protein. She was diagnosed with anxiety and blood pressures resolved with anxiolytic. She was seen in the following week in clinic with normal blood pressures on 08/20/21 and then again on 08/23/21. Today she was seen as a result of a scheduling error. She had her blood pressure checked as part of a nurse exam and SBPs were in the 200s and DBPs in the 100s. She was admitted to L&D for management of severe range blood pressures. 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 PE: VS: 207/109 HR 57 (treated with nifedipine) 98.4 75 125/70 19 100 GEN: NAD HEENT: NCAT RESP: nl effort CV: RR ABD: No RUQ TTP, S&NT/ND EXT: WWP, no LE edema NEURO: A&O, 1+ DTRS in BLE PSYCH: appropriate affect CMP wnl (low potassium) CBC wnl A/P: 26 yo with post severe range pressures Pre-eclampsia with severe features -BPs normalized with nifedipine 10 mg followed with nifedipine 20 mg po as per SMI algorithm -Magnesium 4g bolus followed with 2g/hr infusion for 24 hours -Will start nifedpine XL 30 mg at 20:00 with holding parameters for systolics <130 -Repeat labs x1 at 6 hours post initial labs to assess trend. If remains normal, can return to daily labs GERD: Takes omemprazole. Famotidine ineffectivve. -Pharmacy to check home omeprazle when arrives with medications ANXIETY: Hydroxyzine 50 mg po Q6H prn anxiety In patient care for magnesium infusion and blood pressure management Meds/Allgy - Home Medications Home Medications: Ambulatory Orders Medication Instructions Recorded Confirmed Acetaminophen [Tylenol Extra 500 - 1,000 mg PO Q8H PRN #90 02/25/20 08/19/21 Strength] tablet Docusate Sodium 100 - 200 mg PO BID PRN #60 capsule 02/25/20 08/19/21 Ibuprofen [Motrin] 600 mg PO Q6H PRN #30 tab 08/15/21 08/19/21 Pnv No.95/Ferrous Fum/Folic AC 1 each PO DAILY 08/19/21 08/19/21 [ Tablet] - Allergies Allergies/Adverse Reactions: Allergies Allergy/AdvReac Type Severity Reaction Status Date / Time No Known Drug Allergies Allergy Verified 08/19/21 13:58 Physical - Abdominal Exam Vital Signs: Temp Pulse Resp BP Pulse Ox 98.4 F 76 19 117/63 100 08/29/21 15:40 08/29/21 16:40 08/29/21 15:40 08/29/21 16:40 08/29/21 16:40
[2021-08-29 17:59] LABS: CREATININE,URINE 17.2 mg/dL
[2021-08-29 18:09] LABS: TOTAL PROTEIN,URINE TIMED < 6 mg/dL
[2021-08-29 20:05] LABS: BILIRUBIN,URINE NEGATIVE (NEGATIVE); GLUCOSE, URINE (UA) NEGATIVE (NEGATIVE); KETONES,URINE (UA) NEGATIVE (NEGATIVE); LEUKOCYTE ESTERASE, URINE TRACE (NEGATIVE); NITRITE,URINE NEGATIVE (NEGATIVE); OCCULT BLOOD,URINE MODERATE (NEGATIVE); PH,URINE 6.5 PH (5.0-7.5); PROTEIN,URINE NEGATIVE (NEGATIVE); UROBILINOGEN,URINE 0.2 (NORMAL) E.U./dL (NORMAL)
[2021-08-29 20:06] LABS: CLARITY,URINE CLEAR (CLEAR)
[2021-08-29] MEDS: NIFEdipine ER 30 MG TABLET PO SCH ×2 (20:07→20:58)
[2021-08-29 20:15] LABS: BACTERIA,URINE Few /HPF (None Seen); SQUAMOUS EPITHELIAL CELL,UR FEW Squamous (<= Few)
[2021-08-29 20:35] LABS: BASOPHILS % (AUTO) 0.2 %; EOSINOPHILS % (AUTO) 0.4 %; HGB - HEMOGLOBIN 13.2 g/dL (12.0-16.0); LYMPHOCYTES # (AUTO) 2.4 10^3/uL (1.5-3.5); LYMPHOCYTES % (AUTO) 27.1 %; MEAN CORPUSCULAR HEMOGLOBIN 29.7 pg (27.0-31.0); MEAN CORPUSCULAR VOLUME 90.1 fL (81.0-99.0); MEAN PLATELET VOLUME 9.6 fL (7.9-10.8); MONOCYTES # (AUTO) 0.4 10^3/uL (0.0-1.0); MONOCYTES % (AUTO) 4.6 %; NEUTROPHILS # (AUTO) 6.1 10^3/uL (1.5-6.6); NEUTROPHILS % (AUTO) 67.4 %; PLT - PLATELET COUNT 352 10^3/uL (130-450); RED BLOOD COUNT 4.44 10^6/uL (4.20-5.40); RED CELL DISTRIBUTION WIDTH 13.8 % (12.0-15.0)
[2021-08-29 20:44] LABS: ALBUMIN/GLOBULIN RATIO 1.1 (1.0-2.2); BILIRUBIN,TOTAL 0.4 mg/dL (0.2-1.0); CREATININE 0.6 mg/dL (0.4-1.0); POTASSIUM 3.3 mmol/L (3.5-5.0); TOTAL PROTEIN 7.7 g/dL (6.7-8.2)
[2021-08-29] MEDS: hydrOXYzine PAMOATE 25 MG CAPSULE PO PRN (20:57)
[2021-08-30] MEDS: LACTATED RINGERS 500 ML IV SCH ×2 (01:04→11:13)
[2021-08-30] MEDS: MAGNESIUM SULFATE IN WATER 20 GM/500 ML IV.SOLN IV SCH ×2 (01:04→11:13)
[2021-08-30] MEDS: ACETAMINOPHEN 500 MG TABLET PO PRN ×2 (08:58→16:43)
--- NOTE | 2021-08-30 11:37 | PROVIDER PROGRESS NOTE ---
Subjective - Prog Note Date Prog Note Date: 08/30/21 Prog Note Time: 10:00 - Subjective Subjective: Blood pressures were normal overnight and nifedipine has been help. CBC and CMP have been normal with creatinine decreasing from 0.9 to 0.6 cm. Continues to report neck pain but no CARRASCO/vision change/RUQ pain. Concerned about continued anxiety and open to starting sertraline. Has been in bed given magnesium infusion. Objective - Vital Signs/Intake & Output Reviewed Vital Signs: Yes Vital Signs: Vital Signs x48h Temp Pulse Resp BP Pulse Ox 08/30/21 10:45 74 16 123/77 99 08/30/21 09:00 127/74 08/30/21 08:45 97.7 F 93 16 126/72 100 08/30/21 07:58 114/69 08/30/21 07:00 117/68 08/30/21 05:58 59 L 18 113/67 08/30/21 05:04 59 L 18 113/67 08/30/21 04:15 97.3 F L 81 18 116/72 Intake & Output: Intake & Output 08/27/21 08/28/21 08/29/21 08/30/21 23:59 23:59 23:59 23:59 Intake Total 1000 4343.333 Output Total 4000 3200 Balance -3000 1143.333 - Objective General Appearance: positive: No acute distress Neck: positive: Nml inspection Respiratory: positive: No respiratory distress, Breath sounds nml Cardiovascular: positive: Regular rate & rhythm Peripheral Pulses: 2+ Dorsalis pedis (R), 2+ Dorsalis pedis (L) Abdomen: positive: Non-tender, No distention, Other (No RUQ TTP) Back: positive: Nml inspection Skin: positive: Color nml Neurologic/Psychiatric: positive: Oriented x3, Other (Normal DTRs) - Lab Results Fish Bones: 08/29/21 20:27 08/29/21 20:27 Other Labs: Lab Results x24hrs 08/29/21 08/29/21 08/29/21 Range/Units 20:27 20:27 14:17 WBC 9.0 (4.8-10.8) x10^3/uL RBC 4.44 (4.20-5.40) 10^6/uL Hgb 13.2 (12.0-16.0) g/dL Hct 40.0 (37.0-47.0) % MCV 90.1 (81.0-99.0) fL MCH 29.7 (27.0-31.0) pg MCHC 33.0 (32.0-36.0) g/dL RDW 13.8 (12.0-15.0) % Plt Count 352 (130-450) 10^3/uL MPV 9.6 (7.9-10.8) fL Neut # (Auto) 6.1 (1.5-6.6) 10^3/uL Lymph # (Auto) 2.4 (1.5-3.5) 10^3/uL [place] # (Auto) 0.4 (0.0-1.0) 10^3/uL Eos # (Auto) 0.0 (0.0-0.7) 10^3/uL Baso # (Auto) 0.0 (0.0-0.1) 10^3/uL Absolute Nucleated RBC 0.00 x10^3/uL Nucleated RBC % 0.0 /100WBC Sodium 143 141 (135-145) mmol/L Potassium 3.3 L 3.2 L (3.5-5.0) mmol/L Chloride 104 104 (101-111) mmol/L Carbon Dioxide 29 25 (21-32) mmol/L Anion Gap 10.0 12.0 (6-13) BUN 9 13 (6-20) mg/dL Creatinine 0.6 0.9 (0.4-1.0) mg/dL Estimated GFR (MDRD) 119 75 L (>89) Glucose 117 H 96 (70-100) mg/dL Calcium 8.0 L 9.6 (8.5-10.3) mg/dL Total Bilirubin 0.4 0.7 (0.2-1.0) mg/dL AST 18 18 (10-42) IU/L ALT 20 20 (10-60) IU/L Alkaline Phosphatase 86 85 (42-121) IU/L Total Protein 7.7 8.3 H (6.7-8.2) g/dL Albumin 4.0 4.4 (3.2-5.5) g/dL Globulin 3.7 3.9 (2.1-4.2) g/dL Albumin/Globulin Ratio 1.1 1.1 (1.0-2.2) Urine Color Urine Clarity (CLEAR) Urine pH (5.0-7.5) PH Ur Specific [place] (1.002-1.030) Urine Protein (NEGATIVE) mg/dL Urine Glucose (UA) (NEGATIVE) mg/dL Urine Ketones (NEGATIVE) mg/dL Urine Occult Blood (NEGATIVE) Urine Nitrite (NEGATIVE) Urine Bilirubin (NEGATIVE) Urine Urobilinogen (NORMAL) E.U./dL Ur Leukocyte Esterase (NEGATIVE) Urine RBC (0-5) /HPF Urine WBC (0-5) /HPF Ur Squamous Epith Cells (<= Few) Urine Bacteria (None Seen) /HPF Ur Microscopic Review Urine Culture Comments Urine Creatinine mg/dL Ur Total Protein Timed mg/dL Protein/Creatinin Ratio 08/29/21 08/29/21 08/29/21 Range/Units 14:17 14:10 14:10 WBC 8.3 (4.8-10.8) x10^3/uL RBC 4.57 (4.20-5.40) 10^6/uL Hgb 13.5 (12.0-16.0) g/dL Hct 41.6 (37.0-47.0) % MCV 91.0 (81.0-99.0) fL MCH 29.5 (27.0-31.0) pg MCHC 32.5 (32.0-36.0) g/dL RDW 13.9 (12.0-15.0) % Plt Count 364 (130-450) 10^3/uL MPV 9.5 (7.9-10.8) fL Neut # (Auto) 5.6 (1.5-6.6) 10^3/uL Lymph # (Auto) 2.3 (1.5-3.5) 10^3/uL [place] # (Auto) 0.4 (0.0-1.0) 10^3/uL Eos # (Auto) 0.0 (0.0-0.7) 10^3/uL Baso # (Auto) 0.0 (0.0-0.1) 10^3/uL Absolute Nucleated RBC 0.00 x10^3/uL Nucleated RBC % 0.0 /100WBC Sodium (135-145) mmol/L Potassium (3.5-5.0) mmol/L Chloride (101-111) mmol/L Carbon Dioxide (21-32) mmol/L Anion Gap (6-13) BUN (6-20) mg/dL Creatinine (0.4-1.0) mg/dL Estimated GFR (MDRD) (>89) Glucose (70-100) mg/dL Calcium (8.5-10.3) mg/dL Total Bilirubin (0.2-1.0) mg/dL AST (10-42) IU/L ALT (10-60) IU/L Alkaline Phosphatase (42-121) IU/L Total Protein (6.7-8.2) g/dL Albumin (3.2-5.5) g/dL Globulin (2.1-4.2) g/dL Albumin/Globulin Ratio (1.0-2.2) Urine Color STRAW Urine Clarity CLEAR (CLEAR) Urine pH 6.5 (5.0-7.5) PH Ur Specific [place] <=1.005 (1.002-1.030) Urine Protein NEGATIVE (NEGATIVE) mg/dL Urine Glucose (UA) NEGATIVE (NEGATIVE) mg/dL Urine Ketones NEGATIVE (NEGATIVE) mg/dL Urine Occult Blood MODERATE H (NEGATIVE) Urine Nitrite NEGATIVE (NEGATIVE) Urine Bilirubin NEGATIVE (NEGATIVE) Urine Urobilinogen 0.2 (NORMAL) (NORMAL) E.U./dL Ur Leukocyte Esterase TRACE H (NEGATIVE) Urine RBC 6-10 H (0-5) /HPF Urine WBC 4-5 (0-5) /HPF Ur Squamous Epith Cells FEW Squamous (<= Few) Urine Bacteria Few (None Seen) /HPF Ur Microscopic Review INDICATED Urine Culture Comments INDICATED Urine Creatinine 17.2 mg/dL Ur Total Protein Timed < 6 mg/dL Protein/Creatinin Ratio Not Reportable Assessment/Plan - Problem List (1) Preeclampsia in period Impression: Blood pressures have been normal overnight Nifedipine help due as SBPs below holding criteria Magnesium to be discontinued at 24 hours Starting sertraline 50 mg po daily for anxiety/PPD Cont inpatient care
[2021-08-30] MEDS: SERTRALINE 50 MG TABLET PO SCH (17:21)
[2021-08-31] MEDS: ACETAMINOPHEN 500 MG TABLET PO PRN ×2 (00:40→15:50)
[2021-08-31] MEDS: NIFEdipine ER 30 MG TABLET PO SCH (09:00)
[2021-08-31] MEDS ORDERED: NIFEdipine 10 MG CAPSULE PO PRN ×2 (12:25→12:26)
[2021-08-31] MEDS: NIFEdipine 10 MG CAPSULE PO PRN (12:37)
[2021-08-31 13:06] LABS: BASOPHILS % (AUTO) 0.2 %; EOSINOPHILS % (AUTO) 0.2 %; HCT - HEMATOCRIT 39.9 % (37.0-47.0); LYMPHOCYTES # (AUTO) 2.2 10^3/uL (1.5-3.5); LYMPHOCYTES % (AUTO) 25.1 %; MEAN CORPUSCULAR HEMOGLOBIN 29.5 pg (27.0-31.0); MEAN CORPUSCULAR HGB CONC 32.6 g/dL (32.0-36.0); MEAN CORPUSCULAR VOLUME 90.7 fL (81.0-99.0); MEAN PLATELET VOLUME 9.5 fL (7.9-10.8); MONOCYTES # (AUTO) 0.4 10^3/uL (0.0-1.0); MONOCYTES % (AUTO) 4.2 %; NEUTROPHILS # (AUTO) 6.2 10^3/uL (1.5-6.6); NEUTROPHILS % (AUTO) 70.1 %; PLT - PLATELET COUNT 341 10^3/uL (130-450); RED CELL DISTRIBUTION WIDTH 14.1 % (12.0-15.0); WHITE BLOOD COUNT 8.8 x10^3/uL (4.8-10.8)
[2021-08-31 13:17] LABS: ALBUMIN 3.8 g/dL (3.2-5.5); ALKALINE PHOSPHATASE 81 IU/L (42-121); ALT ALANINE AMINOTRANSFERASE 16 IU/L (10-60); AST ASPARTATE AMINOTRANSFERASE 17 IU/L (10-42); BILIRUBIN,TOTAL 0.5 mg/dL (0.2-1.0); BUN - BLOOD UREA NITROGEN 11 mg/dL (6-20); CARBON DIOXIDE - CO2 23 mmol/L (21-32); CHLORIDE 105 mmol/L (101-111); CREATININE 0.6 mg/dL (0.4-1.0); GFR - MDRD 119 (>89); GLUCOSE 88 mg/dL (70-100); IONIZED CALCIUM IF INDICATED YES; SODIUM 139 mmol/L (135-145); TOTAL PROTEIN 7.5 g/dL (6.7-8.2)
[2021-08-31 13:18] LABS: CALCIUM, IONIZED 1.01 mmol/L (1.15-1.33); VBG PH 7.431 (7.31-7.41)
--- NOTE | 2021-08-31 13:27 | CT Report ---
PROCEDURE: Head W/O Stroke Protocol INDICATIONS: severe pre-eclampsia w unremitting head/neck pain TECHNIQUE: Noncontrast 4.5 mm thick angled axial sections acquired from the foramen magnum to the vertex, with c oronal reformats. For radiation dose reduction, the following was used: automated exposure control, adjustment of mA and/or kV according to patient size. COMPARISON: FINDINGS: BRAIN PARENCHYMA: Subtle hypoattenuation in the bioccipital region. No acute cortical based (large te rritory) infarction, intracranial hemorrhage, mass or mass effect, or abnormal fluid collection. The density in the larger dural venous sinuses is grossly normal. VENTRICLES: Normal in size, shape, and position. BONES/SINUSES: The skull base and calvarium demonstrate no acute abnormality. Air-fluid level in the right maxillary sinus. The remaining paranasal sinuses and mastoid air cells are well aerated. IMPRESSION: 1.No acute intracranial hemorrhage. 2.Subtle hypoattenuation in the occipital region, which may reflect reversible encephalopathy. Consid er magnetic resonance imaging for further evaluation. Findings were discussed with the ordering provider at the time of dictation. Reviewed by: Napoleon Turner MD on 08/31/2021 1:25 PM PDT Approved by: Napoleon Turner MD on 08/31/2021 1:25 PM PDT Station ID: [id number]
[2021-08-31] MEDS ORDERED: MAGNESIUM SULFATE 4 GRAM 4 GM/50 ML BAG IV ONE (14:08)
--- NOTE | 2021-08-31 14:08 | PROVIDER PROGRESS NOTE ---
Subjective - Prog Note Date Prog Note Date: 08/31/21 Prog Note Time: 14:07 - Subjective Subjective: S: Note reflect full morning of activity. Had 24 hours of magnesium and had been approaching 24 hours of normal range/mild range BPs Patient was doing well and BPs were remaining in normal to mild range off magnesium. Last dose of nifedipine 30 XL was at 9 am. No symptoms other than persistent left sided neck pain. Last dose of tylenol was at 1:00 am and patient declined additional dose at 9 am and later. Neck pain had been present even when BPs were well wnl. However, given persistence of concern, Head/Neck CT was ordered. BPs started to trend up and reached 170s systolic. Patient received nifedipine 20 mg po x1 and then went to obtain CT scan. Bps were wnl within 30 minutes. Mild hypoattenuation in occipital region noted on CT, suggested of possible PRES. MRI recommended. No other intracranial findings of concern. MRI is not available at [facility] on Fridays and requires transfer. BP now normal and no PIH symptoms, patient is fully coherent. Patient does endorse anxiety, which is high at baseline. She reports bilateral tingling in upper extremities but states this is a common manifestation of anxiety for her and predates the . PIH labs drawn at 13:00 well wnl. Conferred with M at [place]. Reviewed that management of PRES is management of hypertension and magnesium, which is current plan of care for patient. Since no change in care plan would evolve from further MRI assessment, transfer is not indicated at present. O: VS: See below GEN: NAD HEENT: NCAT. symmetric facies CV: RRR RESP: CTAB ABD: S&NT/ND EXT: WWP, DTRs wnl NEURO: A&O x3. No focal neurological deficits on gross exam PSYCH: appropriate affect. A/P: 26 yo with pre-eclampsia with severe range pressures Persistent HTN: -current with normal range blood pressures -cont nifedipine 30 XL QAM with likely plan to start BID dosing with further increase in BPs. At present, does not exceed holding parameters -restart magnesium 4g bolus/2g hr infusion -PIH labs well wnl UTI: E. coli UTI -Starting cephalexin 500 mg po Q6H -FU sensitivities ANXIETY: -started on sertraline 50 mg po daily -offered lorazepam; declined -Has hydroxyzine available, declined Cont in patient care Objective - Vital Signs/Intake & Output Vital Signs: Vital Signs x48h Temp Pulse Resp BP BP Pulse Ox 08/31/21 13:58 98.6 F 08/31/21 13:40 91 21 123/70 08/31/21 13:09 142/76 H 08/31/21 12:56 170/81 H 08/31/21 12:40 163/102 H 08/31/21 12:28 98.2 F 71 17 170/88 H 100 08/31/21 10:02 67 145/86 H 08/31/21 10:01 67 156/93 H 08/31/21 09:01 98.6 F 145/89 H 08/31/21 08:03 99.0 F 61 18 133/79 H 100 Intake & Output: Intake & Output 08/28/21 08/29/21 08/30/21 08/31/21 23:59 23:59 23:59 23:59 Intake Total 1000 5196.667 1000 Output Total 4000 4800 900 Balance -3000 396.667 100 - Lab Results Fish Bones: 08/31/21 13:00 08/31/21 13:00 Other Labs: Lab Results x24hrs 08/31/21 08/31/21 08/31/21 Range/Units 13:00 13:00 13:00 WBC 8.8 (4.8-10.8) x10^3/uL RBC 4.40 (4.20-5.40) 10^6/uL Hgb 13.0 (12.0-16.0) g/dL Hct 39.9 (37.0-47.0) % MCV 90.7 (81.0-99.0) fL MCH 29.5 (27.0-31.0) pg MCHC 32.6 (32.0-36.0) g/dL RDW 14.1 (12.0-15.0) % Plt Count 341 (130-450) 10^3/uL MPV 9.5 (7.9-10.8) fL Neut # (Auto) 6.2 (1.5-6.6) 10^3/uL Lymph # (Auto) 2.2 (1.5-3.5) 10^3/uL [place] # (Auto) 0.4 (0.0-1.0) 10^3/uL Eos # (Auto) 0.0 (0.0-0.7) 10^3/uL Baso # (Auto) 0.0 (0.0-0.1) 10^3/uL Absolute Nucleated RBC 0.00 x10^3/uL Nucleated RBC % 0.0 /100WBC VBG pH 7.431 H (7.31-7.41) Ionized Calcium 1.01 L YES (1.15-1.33) mmol/L Sodium 139 (135-145) mmol/L Potassium 4.0 (3.5-5.0) mmol/L Chloride 105 (101-111) mmol/L Carbon Dioxide 23 (21-32) mmol/L Anion Gap 11.0 (6-13) BUN 11 (6-20) mg/dL Creatinine 0.6 (0.4-1.0) mg/dL Estimated GFR (MDRD) 119 (>89) Glucose 88 (70-100) mg/dL Calcium 8.0 L (8.5-10.3) mg/dL Total Bilirubin 0.5 (0.2-1.0) mg/dL AST 17 (10-42) IU/L ALT 16 (10-60) IU/L Alkaline Phosphatase 81 (42-121) IU/L Total Protein 7.5 (6.7-8.2) g/dL Albumin 3.8 (3.2-5.5) g/dL Globulin 3.7 (2.1-4.2) g/dL Albumin/Globulin Ratio 1.0 (1.0-2.2)
[2021-08-31] MEDS: LACTATED RINGERS 500 ML IV SCH (15:10)
[2021-08-31] MEDS: cephALEXin 250 MG CAPSULE PO SCH ×2 (15:50→21:57)
[2021-08-31] MEDS: MAGNESIUM SULFATE IN WATER 20 GM/500 ML IV.SOLN IV SCH (16:03)
--- NOTE | 2021-08-31 18:47 | PHARMACY PROGRESS NOTE ---
- Best Possible Medication History Admit Date and Time: 08/30/21 0720 Processed by: Pharmacy Medication History completed: Yes Patient Interview: Completed Secondary Source(s): Insurance records As the person ultimately responsible for medication therapy, providers are able to order a medication from an existing home medication list in [facility] via the "Reconcile Routine" prior to Confirmation of that medication by senior administrator support. Such practice is discouraged except when the physician, in their clinical judgment, deems that a medical need exists for a medication without regard to previous use.
[2021-08-31] MEDS: SERTRALINE 50 MG TABLET PO SCH (20:06)
[2021-09-01] MEDS: MAGNESIUM SULFATE IN WATER 20 GM/500 ML IV.SOLN IV SCH ×3 (02:52→21:00)
[2021-09-01] MEDS: cephALEXin 250 MG CAPSULE PO SCH ×3 (04:03→11:05)
--- NOTE | 2021-09-01 05:47 | PROVIDER PROGRESS NOTE ---
Subjective - Prog Note Date Prog Note Date: 09/01/21 Prog Note Time: 06:30 - Subjective Pt reports feeling: Improved Subjective: Subjective: Patient did better overnight. Pain is been well controlled. Neck pain intermittent, but nonsevere. Denies headache, vision changes, shortness of breath, palpations. Still tired, but did get some rest. Blood pressure remained in the normal range since acute treatment yesterday. Objective: Physical Exam Constitutional: alert, no acute distress, well hydrated, well developed, well n ourished, appropriate dress. Skin: normal turgor, normal color. Head: atraumatic, normocephalic. Cardiovascular: RRR. Respiratory: no respiratory distress. Clear to auscultation bilaterally Abdomen: Soft, nondistended, nontender Spine: normal mobility. Neurologic: 2+ DTRs bilateral lower extremities, no clonus. Psych: affect and mood appropriate, normal interaction, good eye contact. Assessment and plan: 26-year-old G3, P3 with preeclampsia with severe features 1. Preeclampsia severe features -Blood pressures remain good control. Continue nifedipine 30 mg XL every morning. -Consider twice daily dosing if blood pressure is is more difficult to manage. At this point may not need. -CBC, CMP pending -We will likely discontinue magnesium this afternoon and follow blood pressures until tomorrow. If well controlled, will consider discharging tomorrow. 2. Acute cystitis -Likely UTI. Awaiting sensitivities. -Continue cephalexin 5 mg every 6 hours 3. Anxiety: Continue sertraline 50 mg daily Objective - Vital Signs/Intake & Output Vital Signs: Vital Signs x48h Temp Pulse Resp BP Pulse Ox 09/01/21 04:05 97.7 F 66 16 112/71 98 09/01/21 02:05 97.7 F 67 17 119/68 100 08/31/21 23:56 97.5 F L 66 16 124/84 H 99 08/31/21 21:58 97.5 F L 64 16 126/73 99 Intake & Output: Intake & Output 08/29/21 08/30/21 08/31/21 09/01/21 23:59 23:59 23:59 23:59 Intake Total 1000 5196.667 1800 750 Output Total 4000 4800 2700 600 Balance -3000 396.667 -900 150 - Lab Results Fish Bones: 08/31/21 13:00 08/31/21 13:00 Other Labs: Lab Results x24hrs 08/31/21 08/31/21 08/31/21 Range/Units 13:00 13:00 13:00 WBC 8.8 (4.8-10.8) x10^3/uL RBC 4.40 (4.20-5.40) 10^6/uL Hgb 13.0 (12.0-16.0) g/dL Hct 39.9 (37.0-47.0) % MCV 90.7 (81.0-99.0) fL MCH 29.5 (27.0-31.0) pg MCHC 32.6 (32.0-36.0) g/dL RDW 14.1 (12.0-15.0) % Plt Count 341 (130-450) 10^3/uL MPV 9.5 (7.9-10.8) fL Neut # (Auto) 6.2 (1.5-6.6) 10^3/uL Lymph # (Auto) 2.2 (1.5-3.5) 10^3/uL [place] # (Auto) 0.4 (0.0-1.0) 10^3/uL Eos # (Auto) 0.0 (0.0-0.7) 10^3/uL Baso # (Auto) 0.0 (0.0-0.1) 10^3/uL Absolute Nucleated RBC 0.00 x10^3/uL Nucleated RBC % 0.0 /100WBC VBG pH 7.431 H (7.31-7.41) Ionized Calcium 1.01 L YES (1.15-1.33) mmol/L Sodium 139 (135-145) mmol/L Potassium 4.0 (3.5-5.0) mmol/L Chloride 105 (101-111) mmol/L Carbon Dioxide 23 (21-32) mmol/L Anion Gap 11.0 (6-13) BUN 11 (6-20) mg/dL Creatinine 0.6 (0.4-1.0) mg/dL Estimated GFR (MDRD) 119 (>89) Glucose 88 (70-100) mg/dL Calcium 8.0 L (8.5-10.3) mg/dL Total Bilirubin 0.5 (0.2-1.0) mg/dL AST 17 (10-42) IU/L ALT 16 (10-60) IU/L Alkaline Phosphatase 81 (42-121) IU/L Total Protein 7.5 (6.7-8.2) g/dL Albumin 3.8 (3.2-5.5) g/dL Globulin 3.7 (2.1-4.2) g/dL Albumin/Globulin Ratio 1.0 (1.0-2.2)
[2021-09-01 08:21] LABS: BASOPHILS % (AUTO) 0.3 %; EOSINOPHILS # (AUTO) 0.1 10^3/uL (0.0-0.7); EOSINOPHILS % (AUTO) 0.9 %; HGB - HEMOGLOBIN 12.9 g/dL (12.0-16.0); LYMPHOCYTES # (AUTO) 1.6 10^3/uL (1.5-3.5); LYMPHOCYTES % (AUTO) 23.4 %; MEAN CORPUSCULAR HGB CONC 33.1 g/dL (32.0-36.0); MEAN CORPUSCULAR VOLUME 90.7 fL (81.0-99.0); MEAN PLATELET VOLUME 9.7 fL (7.9-10.8); MONOCYTES # (AUTO) 0.3 10^3/uL (0.0-1.0); MONOCYTES % (AUTO) 3.9 %; NEUTROPHILS # (AUTO) 4.9 10^3/uL (1.5-6.6); NEUTROPHILS % (AUTO) 71.4 %; PLT - PLATELET COUNT 339 10^3/uL (130-450); RED CELL DISTRIBUTION WIDTH 14.1 % (12.0-15.0); WHITE BLOOD COUNT 6.9 x10^3/uL (4.8-10.8)
[2021-09-01 08:34] LABS: ALBUMIN 3.9 g/dL (3.2-5.5); ALBUMIN/GLOBULIN RATIO 1.1 (1.0-2.2); BILIRUBIN,TOTAL 0.4 mg/dL (0.2-1.0); CALCIUM 7.1 mg/dL (8.5-10.3); CREATININE 0.5 mg/dL (0.4-1.0); POTASSIUM 3.9 mmol/L (3.5-5.0); TOTAL PROTEIN 7.5 g/dL (6.7-8.2)
[2021-09-01] MEDS: ACETAMINOPHEN 500 MG TABLET PO PRN ×3 (09:02→21:32)
[2021-09-01] MEDS: NIFEdipine ER 30 MG TABLET PO SCH (11:05)
[2021-09-01] MEDS: NITROFURANTOIN MACRO 100 MG CAPSULE PO SCH ×2 (12:58→21:33)
[2021-09-01] MEDS: hydrOXYzine PAMOATE 25 MG CAPSULE PO PRN ×2 (16:06→21:32)
--- NOTE | 2021-09-01 16:34 | PROVIDER PROGRESS NOTE ---
Subjective - Prog Note Date Prog Note Date: 09/01/21 Prog Note Time: 16:32 - Subjective Pt reports feeling: Improved Subjective: Patient doing well. Is eating continues to be anxious, but will try hydroxyzine again. IV exam was shut off after 24 hours. No severe range blood pressures. At this time plan to continue once daily dosing. If becomes problematic, will increase to twice daily. Patient was being treated for UTI, final culture came back as ESBL, resistant to cephalexin. Was switched to nitrofurantoin.Plan to continue for 1 week. This may explain some of her discomfort and feeling unwell. Objective - Vital Signs/Intake & Output Vital Signs: Vital Signs x48h Temp Pulse Resp BP Pulse Ox 09/01/21 16:00 75 146/97 H 09/01/21 15:19 98.4 F 74 16 155/91 H 100 09/01/21 12:09 98.6 F 66 128/69 09/01/21 11:03 57 L 119/75 Intake & Output: Intake & Output 08/29/21 08/30/21 08/31/21 09/01/21 23:59 23:59 23:59 23:59 Intake Total 1000 5196.667 1800 2000 Output Total 4000 4800 2700 3770 Balance -3000 396.198 -538 -6528 - Lab Results Fish Bones: 09/01/21 08:00 09/01/21 08:00 Other Labs: Lab Results x24hrs 09/01/21 09/01/21 Range/Units 08:00 08:00 WBC 6.9 (4.8-10.8) x10^3/uL RBC 4.30 (4.20-5.40) 10^6/uL Hgb 12.9 (12.0-16.0) g/dL Hct 39.0 (37.0-47.0) % MCV 90.7 (81.0-99.0) fL MCH 30.0 (27.0-31.0) pg MCHC 33.1 (32.0-36.0) g/dL RDW 14.1 (12.0-15.0) % Plt Count 339 (130-450) 10^3/uL MPV 9.7 (7.9-10.8) fL Neut # (Auto) 4.9 (1.5-6.6) 10^3/uL Lymph # (Auto) 1.6 (1.5-3.5) 10^3/uL [place] # (Auto) 0.3 (0.0-1.0) 10^3/uL Eos # (Auto) 0.1 (0.0-0.7) 10^3/uL Baso # (Auto) 0.0 (0.0-0.1) 10^3/uL Absolute Nucleated RBC 0.00 x10^3/uL Nucleated RBC % 0.0 /100WBC Sodium 139 (135-145) mmol/L Potassium 3.9 (3.5-5.0) mmol/L Chloride 102 (101-111) mmol/L Carbon Dioxide 25 (21-32) mmol/L Anion Gap 12.0 (6-13) BUN 7 (6-20) mg/dL Creatinine 0.5 (0.4-1.0) mg/dL Estimated GFR (MDRD) 147 (>89) Glucose 127 H (70-100) mg/dL Calcium 7.1 L (8.5-10.3) mg/dL Total Bilirubin 0.4 (0.2-1.0) mg/dL AST 17 (10-42) IU/L ALT 17 (10-60) IU/L Alkaline Phosphatase 79 (42-121) IU/L Total Protein 7.5 (6.7-8.2) g/dL Albumin 3.9 (3.2-5.5) g/dL Globulin 3.6 (2.1-4.2) g/dL Albumin/Globulin Ratio 1.1 (1.0-2.2)
[2021-09-01] MEDS: CALCIUM CARBONATE CHEW 500 MG TABLET PO SCH ×2 (17:54→22:26)
[2021-09-01] MEDS: FAMOTIDINE 20 MG TABLET PO SCH (18:41)
[2021-09-01] MEDS ORDERED: FAMOTIDINE 20 MG TABLET ONE (18:47)
[2021-09-01] MEDS: SERTRALINE 50 MG TABLET PO SCH (21:33)
[2021-09-01] MEDS: SODIUM CHLORIDE FLUSH 0.9% 10 ML SYRINGE IVP PRN (22:23)
[2021-09-02] MEDS: ACETAMINOPHEN 500 MG TABLET PO PRN ×2 (05:20→12:05)
[2021-09-02] MEDS: hydrOXYzine PAMOATE 25 MG CAPSULE PO PRN ×3 (05:20→20:30)
[2021-09-02 06:00] LABS: BASOPHILS % (AUTO) 0.5 %; EOSINOPHILS % (AUTO) 0.7 %; HCT - HEMATOCRIT 38.9 % (37.0-47.0); HGB - HEMOGLOBIN 12.5 g/dL (12.0-16.0); LYMPHOCYTES # (AUTO) 1.8 10^3/uL (1.5-3.5); LYMPHOCYTES % (AUTO) 29.3 %; MEAN CORPUSCULAR HEMOGLOBIN 29.3 pg (27.0-31.0); MEAN CORPUSCULAR HGB CONC 32.1 g/dL (32.0-36.0); MEAN CORPUSCULAR VOLUME 91.3 fL (81.0-99.0); MEAN PLATELET VOLUME 9.7 fL (7.9-10.8); MONOCYTES # (AUTO) 0.3 10^3/uL (0.0-1.0); MONOCYTES % (AUTO) 5.6 %; NEUTROPHILS # (AUTO) 3.9 10^3/uL (1.5-6.6); NEUTROPHILS % (AUTO) 63.7 %; PLT - PLATELET COUNT 324 10^3/uL (130-450); RED BLOOD COUNT 4.26 10^6/uL (4.20-5.40); RED CELL DISTRIBUTION WIDTH 14.3 % (12.0-15.0); WHITE BLOOD COUNT 6.1 x10^3/uL (4.8-10.8)
[2021-09-02 06:12] LABS: ALBUMIN 3.7 g/dL (3.2-5.5); ALBUMIN/GLOBULIN RATIO 1.1 (1.0-2.2); BILIRUBIN,TOTAL 0.7 mg/dL (0.2-1.0); CALCIUM 7.9 mg/dL (8.5-10.3); CREATININE 0.6 mg/dL (0.4-1.0); POTASSIUM 4.2 mmol/L (3.5-5.0); TOTAL PROTEIN 7.1 g/dL (6.7-8.2)
[2021-09-02] MEDS: MAGNESIUM SULFATE IN WATER 20 GM/500 ML IV.SOLN IV SCH (07:30)
[2021-09-02] MEDS: NITROFURANTOIN MACRO 100 MG CAPSULE PO SCH ×2 (08:46→21:11)
[2021-09-02] MEDS: NIFEdipine ER 30 MG TABLET PO SCH (08:46)
[2021-09-02] MEDS: FAMOTIDINE 20 MG TABLET PO SCH ×2 (08:46→21:10)
[2021-09-02] MEDS: CALCIUM CARBONATE CHEW 500 MG TABLET PO SCH (09:30)
--- NOTE | 2021-09-02 13:17 | PROVIDER PROGRESS NOTE ---
Subjective - Prog Note Date Prog Note Date: 09/02/21 Prog Note Time: 13:16 - Subjective Pt reports feeling: Improved Subjective: Patient did well overnight. No severe elevations in blood pressure for approximately 48 hours. Patient was we will plan on discharging patient this afternoon, but again at noon, she is she again began having severe range blood pressures and we treated with nifedipine acutely. This is rather strange that she will go 48 hours between episodes. She is doing better on hydroxyzine for her anxiety. Denies headache, change in vision, right upper quadrant pain. Physical Exam Constitutional: alert, no acute distress, well hydrated, well developed, well nourished, appropriate dress. Skin: normal turgor, normal color. Head: atraumatic, normocephalic. Cardiovascular: RRR. Respiratory: no respiratory distress. Clear to auscultation bilaterally. Abdomen: nondistended, nontender. Spine: normal mobility. Neurologic: normal, sensation intact, motor intact. No hyperreflexia. Psych: affect and mood appropriate, normal interaction, good eye contact. Assessment and plan 26-year-old female with preeclampsia with severe features 1. Preeclampsia severe features - At this point, she appears well with no lab abnormalities concerning for worsening preeclampsia. I believe she would benefit from spacing out her dosing, and will add labetalol 100 mg 3 times daily. Plan to hold the morning dose tomorrow to see how her blood pressure does while maintaining the nicardipine 30 mg XL. -She is status post 24 hours magnesium x2 sessions. -Patient is very eager to get home so we discussed observing for this afternoon and evening and if no further problems with blood pressure, can go home with the above plan. If so, we will plan for a blood pressure check tomorrow in clinic. 2. Anxiety -continue hydroxyzine 3 times daily as needed 3. ESBL urinary tract infection -Plan to continue nitrofurantoin for 1 week. Objective - Vital Signs/Intake & Output Vital Signs: Vital Signs x48h Temp Pulse Resp BP Pulse Ox 09/02/21 12:55 63 171/89 H 09/02/21 12:18 171/94 H 09/02/21 12:00 97.9 F 71 19 166/93 H 100 09/02/21 08:43 97.5 F L 93 16 148/88 H 100 09/02/21 05:18 98.8 F 57 L 18 144/77 H 99 Intake & Output: Intake & Output 08/30/21 08/31/21 09/01/21 09/02/21 23:59 23:59 23:59 23:59 Intake Total 5196.667 1800 2000.003 600 Output Total 4800 2700 3770 1150 Balance 396.667 -900 -1769.997 -550 - Lab Results Fish Bones: 09/02/21 05:55 09/02/21 05:55 Other Labs: Lab Results x24hrs 09/02/21 09/02/21 Range/Units 05:55 05:55 WBC 6.1 (4.8-10.8) x10^3/uL RBC 4.26 (4.20-5.40) 10^6/uL Hgb 12.5 (12.0-16.0) g/dL Hct 38.9 (37.0-47.0) % MCV 91.3 (81.0-99.0) fL MCH 29.3 (27.0-31.0) pg MCHC 32.1 (32.0-36.0) g/dL RDW 14.3 (12.0-15.0) % Plt Count 324 (130-450) 10^3/uL MPV 9.7 (7.9-10.8) fL Neut # (Auto) 3.9 (1.5-6.6) 10^3/uL Lymph # (Auto) 1.8 (1.5-3.5) 10^3/uL [place] # (Auto) 0.3 (0.0-1.0) 10^3/uL Eos # (Auto) 0.0 (0.0-0.7) 10^3/uL Baso # (Auto) 0.0 (0.0-0.1) 10^3/uL Absolute Nucleated RBC 0.00 x10^3/uL Nucleated RBC % 0.0 /100WBC Sodium 139 (135-145) mmol/L Potassium 4.2 (3.5-5.0) mmol/L Chloride 105 (101-111) mmol/L Carbon Dioxide 24 (21-32) mmol/L Anion Gap 10.0 (6-13) BUN 12 (6-20) mg/dL Creatinine 0.6 (0.4-1.0) mg/dL Estimated GFR (MDRD) 119 (>89) Glucose 89 (70-100) mg/dL Calcium 7.9 L (8.5-10.3) mg/dL Total Bilirubin 0.7 (0.2-1.0) mg/dL AST 17 (10-42) IU/L ALT 19 (10-60) IU/L Alkaline Phosphatase 71 (42-121) IU/L Total Protein 7.1 (6.7-8.2) g/dL Albumin 3.7 (3.2-5.5) g/dL Globulin 3.4 (2.1-4.2) g/dL Albumin/Globulin Ratio 1.1 (1.0-2.2)
[2021-09-02] MEDS: LACTATED RINGERS 500 ML IV SCH (15:03)
[2021-09-02] MEDS: LABETALOL 100 MG TABLET PO SCH (15:32)
[2021-09-02] MEDS: SERTRALINE 50 MG TABLET PO SCH (21:10)
[2021-09-02] MEDS: SODIUM CHLORIDE FLUSH 0.9% 10 ML SYRINGE IVP PRN (21:22)
[2021-09-03] MEDS: ACETAMINOPHEN 500 MG TABLET PO PRN (03:59)
[2021-09-03] MEDS: LABETALOL 100 MG TABLET PO SCH ×3 (03:59→17:00)
[2021-09-03 04:54] LABS: ALBUMIN 3.8 g/dL (3.2-5.5); BILIRUBIN,TOTAL 0.6 mg/dL (0.2-1.0); CALCIUM 8.9 mg/dL (8.5-10.3); CREATININE 0.6 mg/dL (0.4-1.0); POTASSIUM 4.3 mmol/L (3.5-5.0); TOTAL PROTEIN 7.5 g/dL (6.7-8.2)
[2021-09-03] MEDS: MAGNESIUM SULFATE IN WATER 20 GM/500 ML IV.SOLN IV SCH ×3 (07:23→14:43)
[2021-09-03] MEDS: CALCIUM CARBONATE CHEW 500 MG TABLET PO SCH ×3 (07:24→20:52)
[2021-09-03] MEDS: FAMOTIDINE 20 MG TABLET PO SCH ×2 (09:19→20:53)
[2021-09-03] MEDS: NIFEdipine ER 30 MG TABLET PO SCH ×2 (09:19→18:42)
[2021-09-03] MEDS: NITROFURANTOIN MACRO 100 MG CAPSULE PO SCH ×3 (09:19→21:01)
[2021-09-03] MEDS: SODIUM CHLORIDE FLUSH 0.9% 10 ML SYRINGE IVP PRN ×2 (09:21→20:54)
[2021-09-03] MEDS: LABETALOL 20 MG/4 ML SYRINGE IVP PRN (10:32)
[2021-09-03] MEDS ORDERED: NIFEdipine 10 MG CAPSULE PO PRN ×4 (10:56→18:09)
[2021-09-03] MEDS ORDERED: LORazepam 0.5 MG TABLET PO SCH (11:00)
[2021-09-03] MEDS ORDERED: NIFEdipine 10 MG CAPSULE PO ONE (11:04)
[2021-09-03] MEDS: LACTATED RINGERS 500 ML IV SCH (14:44)
--- NOTE | 2021-09-03 18:12 | PROVIDER PROGRESS NOTE ---
Subjective - Prog Note Date Prog Note Date: 09/03/21 Prog Note Time: 11:30 - Subjective Subjective: Patient has come off of magnesium. Started on labetalol 100 mg po TID in addition to baseline nifedipine XL 30 mg QAM. At about 10:30 am, patient had a run of severe range pressures. She noted that her hands felt clammy and her anxiety was high when blood pressure was elevated. She responded to nifedipine 10 mg po x1, followed with nifedipine 20 mg po x1 and lorazepam 0.5 mg po x1. Bloood pressures improved to normal/mild range. No CARRASCO/vision change/RUQ pain. Patient mildly upset that she is not meeting discharge criteria. Has been switched from Keflex to nitrofurantoin given cephalexin resistant E.colie ESBL. Objective - Vital Signs/Intake & Output Reviewed Vital Signs: Yes Vital Signs: Vital Signs x48h Temp Pulse Resp BP BP Pulse Ox 09/03/21 18:01 98.8 F 86 16 162/91 H 100 09/03/21 15:30 98.2 F 65 16 143/93 H 100 09/03/21 15:00 69 139/88 H 09/03/21 14:15 63 141/92 H 09/03/21 14:00 73 143/91 H 09/03/21 13:52 79 138/88 H 09/03/21 12:50 71 129/70 09/03/21 12:40 72 119/70 09/03/21 12:30 66 123/70 09/03/21 12:20 62 130/74 09/03/21 12:10 63 124/68 09/03/21 12:00 68 121/67 09/03/21 11:51 76 124/72 09/03/21 11:39 63 147/85 H 09/03/21 11:15 57 L 198/103 H 09/03/21 10:49 59 L 198/107 H 09/03/21 10:44 58 L 193/103 H 09/03/21 10:30 62 189/102 H 09/03/21 10:25 60 187/108 H 178/102 H Intake & Output: Intake & Output 08/31/21 09/01/21 09/02/21 09/03/21 23:59 23:59 23:59 23:59 Intake Total 1800 2000.003 1200 1550 Output Total 2700 3770 2200 3200 Balance -900 -1769.997 -1000 -1650 - Objective General Appearance: positive: No acute distress Neck: positive: Nml inspection Respiratory: positive: No respiratory distress, Breath sounds nml Cardiovascular: positive: Regular rate & rhythm Peripheral Pulses: 1+ Dorsalis pedis (R), 1+ Dorsalis pedis (L) Abdomen: positive: Other (S&NT/ND. No RUQ TTP) Skin: positive: Color nml Extremities: positive: Non-tender, Nml appearance Neurologic/Psychiatric: positive: Oriented x3, Other Reflexes: Knee (R): 1+, Knee (L): 1+ - Lab Results Fish Bones: 09/02/21 05:55 09/03/21 04:34 Other Labs: Lab Results x24hrs 09/03/21 Range/Units 04:34 Sodium 141 (135-145) mmol/L Potassium 4.3 (3.5-5.0) mmol/L Chloride 107 (101-111) mmol/L Carbon Dioxide 23 (21-32) mmol/L Anion Gap 11.0 (6-13) BUN 12 (6-20) mg/dL Creatinine 0.6 (0.4-1.0) mg/dL Estimated GFR (MDRD) 119 (>89) Glucose 88 (70-100) mg/dL Calcium 8.9 (8.5-10.3) mg/dL Total Bilirubin 0.6 (0.2-1.0) mg/dL AST 16 (10-42) IU/L ALT 19 (10-60) IU/L Alkaline Phosphatase 70 (42-121) IU/L Total Protein 7.5 (6.7-8.2) g/dL Albumin 3.8 (3.2-5.5) g/dL Globulin 3.7 (2.1-4.2) g/dL Albumin/Globulin Ratio 1.0 (1.0-2.2) Assessment/Plan - Problem List (1) Preeclampsia in period Impression: Patient remains in-patient after 2nd round of magnesium. Currently on nifedipine XL 30 mg po QAM and labetalol 100 gm po TID with breakthrough blood pressures -If elevated BP this pm, will change nifedipine to BID dosing -If normal range this pm, will increase am dose to 60 mg po QAM -Responded well to ativan. Reviewed data on BF and no restrictions are indicated No PIH symptoms. Cont in-patient care
--- NOTE | 2021-09-03 18:23 | PROVIDER PROGRESS NOTE ---
Subjective - Prog Note Date Prog Note Date: 09/03/21 Prog Note Time: 18:20 - Subjective Subjective: Blood pressures are in severe range Giving short acting nifedipine and lorazapam 0.5 mg po x1 When declines to normal/mild range, will start nifedipine XL 30 mg po bid Objective - Vital Signs/Intake & Output Vital Signs: Vital Signs x48h Temp Pulse Resp BP BP Pulse Ox 09/03/21 18:01 98.8 F 86 16 162/91 H 100 09/03/21 15:30 98.2 F 65 16 143/93 H 100 09/03/21 15:00 69 139/88 H 09/03/21 14:15 63 141/92 H 09/03/21 14:00 73 143/91 H 09/03/21 13:52 79 138/88 H 09/03/21 12:50 71 129/70 09/03/21 12:40 72 119/70 09/03/21 12:30 66 123/70 09/03/21 12:20 62 130/74 09/03/21 12:10 63 124/68 09/03/21 12:00 68 121/67 09/03/21 11:51 76 124/72 09/03/21 11:39 63 147/85 H 09/03/21 11:15 57 L 198/103 H 09/03/21 10:49 59 L 198/107 H 09/03/21 10:44 58 L 193/103 H 09/03/21 10:30 62 189/102 H 09/03/21 10:25 60 187/108 H 178/102 H Intake & Output: Intake & Output 08/31/21 09/01/21 09/02/21 09/03/21 23:59 23:59 23:59 23:59 Intake Total 1800 2000.003 1200 1550 Output Total 2700 3770 2200 3200 Balance -900 -6049.997 -1000 -7000 - Lab Results Fish Bones: 09/02/21 05:55 09/03/21 04:34 Other Labs: Lab Results x24hrs 09/03/21 Range/Units 04:34 Sodium 141 (135-145) mmol/L Potassium 4.3 (3.5-5.0) mmol/L Chloride 107 (101-111) mmol/L Carbon Dioxide 23 (21-32) mmol/L Anion Gap 11.0 (6-13) BUN 12 (6-20) mg/dL Creatinine 0.6 (0.4-1.0) mg/dL Estimated GFR (MDRD) 119 (>89) Glucose 88 (70-100) mg/dL Calcium 8.9 (8.5-10.3) mg/dL Total Bilirubin 0.6 (0.2-1.0) mg/dL AST 16 (10-42) IU/L ALT 19 (10-60) IU/L Alkaline Phosphatase 70 (42-121) IU/L Total Protein 7.5 (6.7-8.2) g/dL Albumin 3.8 (3.2-5.5) g/dL Globulin 3.7 (2.1-4.2) g/dL Albumin/Globulin Ratio 1.0 (1.0-2.2)
[2021-09-03] MEDS: LORazepam 0.5 MG TABLET PO PRN (18:32)
[2021-09-03] MEDS: SERTRALINE 50 MG TABLET PO SCH (20:52)
[2021-09-04] MEDS: LABETALOL 100 MG TABLET PO SCH ×3 (00:49→14:43)
[2021-09-04] MEDS: LORazepam 0.5 MG TABLET PO PRN ×3 (05:01→13:11)
[2021-09-04] MEDS: MAGNESIUM SULFATE IN WATER 20 GM/500 ML IV.SOLN IV SCH ×2 (05:36→09:12)
[2021-09-04] MEDS: NIFEdipine ER 30 MG TABLET PO SCH ×3 (06:34→20:51)
[2021-09-04] MEDS: SODIUM CHLORIDE FLUSH 0.9% 10 ML SYRINGE IVP PRN (06:35)
[2021-09-04] MEDS: SERTRALINE 50 MG TABLET PO SCH (08:58)
[2021-09-04] MEDS: CALCIUM CARBONATE CHEW 500 MG TABLET PO SCH (09:11)
[2021-09-04] MEDS: FAMOTIDINE 20 MG TABLET PO SCH (09:11)
--- NOTE | 2021-09-04 12:51 | PROVIDER PROGRESS NOTE ---
Subjective - Prog Note Date Prog Note Date: 09/04/21 Prog Note Time: 12:45 - Subjective Subjective: Blood pressures have been mild range to normal overnight and this am. No CARRASCO/vision change/RUQ pain. Dysuria resolved on macrobid. No other concerns Objective - Vital Signs/Intake & Output Reviewed Vital Signs: Yes Vital Signs: Vital Signs x48h Temp Pulse Resp BP Pulse Ox 09/04/21 11:44 71 16 128/85 H 100 09/04/21 09:09 97.7 F 89 16 129/81 H 100 09/04/21 06:32 64 14 133/75 H 100 09/04/21 05:00 98.6 F 09/04/21 04:58 60 14 140/83 H 99 Intake & Output: Intake & Output 09/01/21 09/02/21 09/03/21 09/04/21 23:59 23:59 23:59 23:59 Intake Total 2000.003 1200 2150 600 Output Total 3770 2200 4350 1250 Balance -1769.997 -1000 -2200 -650 - Objective General Appearance: positive: No acute distress Respiratory: positive: No respiratory distress, Breath sounds nml Cardiovascular: positive: Regular rate & rhythm Abdomen: positive: Non-tender, Other (S&NT/ND. No RUQ tenderness) Skin: positive: Color nml Extremities: positive: Non-tender, No pedal edema Neurologic/Psychiatric: positive: Oriented x3 - Lab Results Fish Bones: 09/02/21 05:55 09/03/21 04:34 Assessment/Plan - Problem List (1) Preeclampsia in period Impression: If remains normotensive until 5-6 pm, will DC to home on nifedipine XL 30 mg po bid and labetalol 100 mg po TID -Will cont macrobid to complete 7 days of nitrofurantoin -Has BP cuff at home and will check every 4 hours -Will DC with ativan 0.5 mg po Q4H prn anxiety Cont to observe through early evening
--- NOTE | 2021-09-04 19:40 | Discharge Plan ---
Discharge Plan Problem Reviewed?: Yes Disposition: Home, Self Care Condition: Good Prescriptions: Lorazepam [Ativan] 0.5 mg PO Q4H PRN #30 tablet PRN Reason: Anxiety Famotidine 40 mg PO DAILY #60 tablet cephALEXin [Keflex] 500 mg PO Q6H #28 cap Labetalol HCl 100 mg PO TID #90 tablet Nitrofurantoin [Macrobid] 100 mg PO BID #12 cap Nitrofurantoin [Macrobid] 100 mg PO BID #10 cap NIFEdipine [Procardia Xl] 30 mg PO BID #60 tablet Nifedipine [Procardia Xl] 30 mg PO DAILY #60 tab Labetalol [Trandate] 100 mg PO Q8H #90 tablet Sertraline [Zoloft] 50 mg PO DAILY #90 tablet Diet: Regular Activity Restrictions: Activity as Tolerated Shower Restrictions: No Driving Restrictions: No Additional Instructions or Follow Up instructions: Call for the following: Headaches that do not improve with pain medications Vision changes that include sparkly lights or black spots Pain in the rught upper part of the belly/abdomen Blood pressures in which the SBP (top number) is 160 or higher OR the DBP (bottom number) is 110 or higher Please check your blood pressure prior to taking nifedipine or labetalol. -If the top number (SBP) is less than 130, please hold your medication for one hour. -Recheck blood pressure after one hour. If the top number (SBP) is less than 130, please hold your medication until the next dose is due. You were also diagnosed with a urinary tract infection. It is very important that you complete the full course of antibiotics. Thank you. No Smoking: If you smoke, Please STOP! Call for help. Follow-up with: Dayana Olvera MD [Provider Admit Priv/Credential] -
--- NOTE | 2021-09-04 19:43 | DISCHARGE SUMMARY ---
Discharge Summary Admit Date: 08/29/21 Discharge Date: 09/04/21 Discharging Provider: May Condition at Discharge: Good Discharge Disposition: 01 Home, Self Care - DIAGNOSES Admission Diagnoses: Post pre-eclampsia with severe features by blood pressure criteria Dysuria Discharge Diagnoses with Status of Each Condition: Same and ESBL producing E. coli UTI - HPI History of Present Illness: 26 yo s/p on 08/13/21 admitted with severe range blood pressures. Patient had a reportedly uncomplicated vaginal delivery on 08/13/21. She was seen in the ED on 08/19/21 with chest pain and palpitations. At that time, she had mild range blood pressures, normal EKG, and normal labs with negative urine protein. She was diagnosed with anxiety and blood pressures resolved with anxiolytic. She was seen in the following week in clinic with normal blood pressures on 08/20/21 and then again on 08/23/21. Today she was seen as a result of a scheduling error. She had her blood pressure checked as part of a nurse exam and SBPs were in the 200s and DBPs in the 100s. She was admitted to L&D for management of severe range blood pressures. - HOSPITAL COURSE Hospital Course: Patient was admitted for management of severe range blood pressures. At presentation: -BPs normalized with nifedipine 10 mg followed with nifedipine 20 mg po as per SMI algorithm -Magnesium 4g bolus followed with 2g/hr infusion for 24 hours -She started nifedpine XL 30 mg at 20:00 with holding parameters for systolics <130 08/30/21 Patient was doing well and BPs were remaining in normal to mild range off magnesium. Last dose of nifedipine 30 XL was at 9 am. No symptoms other than persistent left sided neck pain. Last dose of tylenol was at 1:00 am and patient declined additional dose at 9 am and later. Neck pain had been present even when BPs were well wnl. However, given persistence of concern, Head/Neck CT was ordered. BPs started to trend up and reached 170s systolic. Patient received nifedipine 20 mg po x1 and then went to obtain CT scan. Bps were wnl within 30 minutes. Mild hypoattenuation in occipital region noted on CT, suggested of possible PRES. MRI recommended. No other intracranial findings of concern. MRI is not available at [facility] on Fridays and requires transfer. BP now normal and no PIH symptoms, patient is fully coherent. Patient does endorse anxiety, which is high at baseline. She reports bilateral tingling in upper extremities but states this is a common manifestation of anxiety for her and predates the . PIH labs drawn at 13:00 well wnl. Conferred with MFM at [facility]. Reviewed that management of PRES is management of hypertension and magnesium, which is current plan of care for patient. Since no change in care plan would evolve from further MRI assessment, transfer was not indicated. UTI: E. coli UTI -Starting cephalexin 500 mg po Q6H -FU sensitivities ANXIETY: -started on sertraline 50 mg po daily -offered lorazepam; declined -Has hydroxyzine available, declined 09/01/21: Had normal to mild range blood pressures for about 48 hours. Was planning to discharge when blood pressures again reached severe range around midday. Controlled with oral nifedpine. Completed second round of magnesium infusion. Urine cultures showed ESBL producing E. coli. Was switched to nitrofurantoin. Started on labetalol 100 mg po Q8H to maintain blood pressures with nifedipine 30 mg XL po QAM. On 09/02-09/03, had run of severe range blood pressures. Responded well with short acting nifedipine and lorazapam 0.5 mg po x1 When declined to normal/mild range, started nifedipine XL 30 mg po bid. Noted pattern of extended periods of normal to mild range blood pressures with multiple episodes in which medications were held 2/2 BPs being below threshold for holding parameters followed with brief and intermittent periods or severe range pressures. 09/04/21. Had shown 24 hours of normal to mild range blood pressures. She was observed through the early evening and maintained BPs in an appropriate range. DC to home on nifedipine XL 30 mg po bid and labetalol 100 mg po TID -Will cont macrobid to complete 7 days of nitrofurantoin -Has BP cuff at home and will check every 4 hours - DC with ativan 0.5 mg po Q4H prn anxiety -Will continue with sertraline 50 mg po daily. Plan for follow-up in one week Discharged to home on 09/04/21 - ALLERGIES Allergies/Adverse Reactions: Allergies Allergy/AdvReac Type Severity Reaction Status Date / Time No Known Drug Allergies Allergy Verified 08/19/21 13:58 - MEDICATIONS Home Medications: Ambulatory Orders Medication Instructions Recorded Confirmed Docusate Sodium 100 - 200 mg PO BID PRN #60 capsule 02/25/20 08/31/21 Ibuprofen [Motrin] 600 mg PO Q6H PRN #30 tab 08/15/21 08/31/21 Acetaminophen [Tylenol Extra 1,000 mg PO Q8H PRN 08/31/21 08/31/21 Strength] Ascorbic Acid [Vitamin C] 250 mg PO BID 08/31/21 08/31/21 Docusate Sodium 100Mg Capsule 100 - 200 mg PO BID PRN 08/31/21 08/31/21 [Colace 100Mg Capsule] Famotidine 40 mg PO HS 08/31/21 08/31/21 Ferrous Gluconate 324 mg PO BID 08/31/21 08/31/21 Nifedipine [Procardia Xl] 30 mg PO DAILY #60 tab 08/31/21 Sertraline [Zoloft] 50 mg PO DAILY #90 tablet 08/31/21 cephALEXin [Keflex] 500 mg PO Q6H #28 cap 08/31/21 hydrOXYzine HCL [Hydroxyzine HCl] 10 mg PO TID PRN 08/31/21 08/31/21 Labetalol HCl 100 mg PO TID #90 tablet 09/02/21 Nitrofurantoin [Macrobid] 100 mg PO BID #12 cap 09/02/21 Famotidine 40 mg PO DAILY #60 tablet 09/04/21 Labetalol [Trandate] 100 mg PO Q8H #90 tablet 09/04/21 Lorazepam [Ativan] 0.5 mg PO Q4H PRN #30 tablet 09/04/21 NIFEdipine [Procardia Xl] 30 mg PO BID #60 tablet 09/04/21 Nitrofurantoin [Macrobid] 100 mg PO BID #10 cap 09/04/21 - LABS Result Diagrams: 09/02/21 05:55 09/03/21 04:34 - FOLLOW UP Follow Up: 1 week - TIME SPENT Time Spent in Discharge (Minutes): 30
[2021-09-04] MEDS: NITROFURANTOIN MACRO 100 MG CAPSULE PO SCH (20:54)
[2021-09-04 21:30] VITALS: BP 139/94
== END 2021-09-04 21:26 | disposition home or self-care (01) | DRG 776 ==
LOC: WFO 14:30 → FBP 14:31 → WFO 08-30 07:19 → FBP 08-30 07:20
PROVIDERS: ADMIT Obstetrics & Gynecology; ATTEND Obstetrics & Gynecology
DX: O14.15 Severe pre-eclampsia, complicating the puerperium (principal); I67.83 Posterior reversible encephalopathy syndrome; Z16.12 Extended spectrum beta lactamase (ESBL) resistance; N30.00 Acute cystitis without hematuria; B96.89 Other specified bacterial agents as the cause of diseases classified elsewhere; B96.20 Unspecified Escherichia coli [E. coli] as the cause of diseases classified elsewhere; O90.89 Other complications of the puerperium, not elsewhere classified; M54.2 Cervicalgia; O99.345 Other mental disorders complicating the puerperium; F41.9 Anxiety disorder, unspecified; O99.43 Diseases of the circulatory system complicating the puerperium; K21.9 Gastro-esophageal reflux disease without esophagitis; O99.63 Diseases of the digestive system complicating the puerperium; O86.22 Infection of bladder following delivery
CPT/HCPCS: 36415; 70450; 80053; 81001; 82330; 82570; 84156; 85025; 87077; 87086; 87181; A9270; J7120; 81003; J3475